=== PATIENT | female | born 1940 | race Caucasian/White ===

== ENCOUNTER 2022-02-23 16:56 | Inpatient (IN) | payer MEDICARE ==
[2022-02-23] MEDS ORDERED: Morphine 4 MG/ML VIAL ONE (17:31)
[2022-02-23 17:40] LABS: #Eosinphils 0.1 thou/uL (0.0-0.7); #Lymphocytes 1.4 thou/uL (1.20-3.40); #Monocytes 0.6 thou/uL (0.11-0.59); #Neutrophils 2.6 thou/uL (1.40-6.50); %Basophils 0.7 % (0.0-1.0); %Eosinophils 1.9 % (0.0-10.0); %Lymphocytes 29.7 % (21.0-51.0); %Monocytes 11.9 % (0.0-10.0); %Neutrophils 55.8 % (42.0-75.0); Mean Corpuscular HGB CONC 32.1 g/dL (32.0-36.0); Mean Corpuscular Hemoglobin 34.2 pg (27.0-31.0); Mean Platelet Volume 8.5 fL (7.4-10.4); Platelet Count 189 thou/uL (130-400); RBC Distribution Width 22.1 % (11.5-14.5); Red Blood Cell (RBC) Count 2.03 mill/uL (4.20-5.40); White Blood Cell (WBC) Count 4.7 thou/uL (4.8-10.8)
[2022-02-23 17:53] LABS: Anisocytosis MODERATE=16-30 cells (100X) (0-5/hpf); MDiff Complete? YES; Macrocytosis SLIGHT = 6-15 cells (100X) (0-5/hpf); Ovalocytes SLIGHT = 2-5 cells (100X) (0-1/hpf); Platelet Morphology Comment Appears Adequate; Polychromasia SLIGHT = 2-3 cells (100X) (0-2/hpf); Tear Drops SLIGHT = 2-5 cells (100X) (0-1/hpf)
[2022-02-23 18:01] LABS: ALT (SGPT) 43 U/L (8-55); AST (SGOT) 51 U/L (5-34); Albumin 3.9 g/dL (3.4-4.8); Alkaline Phosphatase 119 U/L (40-110); Anion Gap 16 mmol/L (10-20); BUN (Urea Nitrogen) 43 mg/dL (9.8-20.1); Bilirubin, Total 1.3 mg/dL (0.2-1.2); Calc. Creatinine Clearance 0 mL/min (70-130); Calcium 9.1 mg/dL (7.8-10.44); Carbon Dioxide 26 mmol/L (23-31); Chloride 99 mmol/L (98-107); Estimated GFR 46; Globulin 2.4 g/dL (2.4-3.5); Glucose 94 mg/dL (83-110); Potassium 4.2 mmol/L (3.5-5.1); Protein, Total 6.3 g/dL (5.8-8.1); Sodium 137 mmol/L (136-145)
[2022-02-23 18:25] LABS: CKMB 3.7 ng/mL (0-6.6)
[2022-02-23] MEDS ORDERED: Furosemide 40 MG/4 ML VIAL ONE (19:10)
[2022-02-23] MEDS ORDERED: Aspirin Chewable 81 MG TAB ONE (19:10)
[2022-02-23] MEDS ORDERED: hydrALAZINE 20 MG/ML VIAL SLOW IVP PRN (20:02)
[2022-02-23] MEDS ORDERED: Dextrose 50% Abboject 50 ML SYRINGE SLOW IVP PRN (20:03)
[2022-02-23] MEDS ORDERED: Dextrose 5% in Water 1,000 ML IV PRN (20:03)
[2022-02-23] MEDS ORDERED: HumaLOG 300 UNITS/3 ML VIAL SC PRN ×2 (20:03)
[2022-02-23] MEDS ORDERED: Ondansetron ODT 4 MG TAB PO PRN (20:04)
[2022-02-23] MEDS ORDERED: Acetaminophen 325 MG TAB PO PRN (20:04)
[2022-02-23] MEDS ORDERED: Ondansetron PF 4 MG/2 ML Vial IVP PRN (20:04)
[2022-02-23] MEDS ORDERED: Electrolyte Replacement Protocol 1 EACH FS SCH (20:15)
[2022-02-23 20:52] VITALS: BMI 19.5
[2022-02-23 21:17] LABS: Troponin I 0.029 ng/mL (< 0.028)
[2022-02-23] MEDS: Morphine 4 MG/ML VIAL SLOW IVP PRN (21:22)
[2022-02-24 00:08] LABS: Troponin I 0.024 ng/mL (< 0.028)
[2022-02-24 04:26] LABS: #Eosinphils 0.2 thou/uL (0.0-0.7); #Lymphocytes 1.6 thou/uL (1.20-3.40); #Monocytes 0.5 thou/uL (0.11-0.59); #Neutrophils 1.6 thou/uL (1.40-6.50); %Basophils 1.3 % (0.0-1.0); %Eosinophils 4.4 % (0.0-10.0); %Lymphocytes 42.3 % (21.0-51.0); %Monocytes 11.6 % (0.0-10.0); %Neutrophils 40.5 % (42.0-75.0); Hemoglobin 6.7 g/dL (12.0-16.0); Mean Corpuscular HGB CONC 31.8 g/dL (32.0-36.0); Mean Corpuscular Hemoglobin 34.1 pg (27.0-31.0); Mean Platelet Volume 8.8 fL (7.4-10.4); Platelet Count 206 thou/uL (130-400); RBC Distribution Width 22.6 % (11.5-14.5); Red Blood Cell (RBC) Count 1.97 mill/uL (4.20-5.40); White Blood Cell (WBC) Count 3.9 thou/uL (4.8-10.8)
[2022-02-24 04:34] LABS: Anion Gap 14 mmol/L (10-20); BUN (Urea Nitrogen) 40 mg/dL (9.8-20.1); Calc. Creatinine Clearance 38 mL/min (70-130); Carbon Dioxide 27 mmol/L (23-31); Chloride 101 mmol/L (98-107); Estimated GFR 49; Glucose 89 mg/dL (83-110); Magnesium 2.2 mg/dL (1.6-2.6); Potassium 3.6 mmol/L (3.5-5.1); Sodium 138 mmol/L (136-145)
[2022-02-24 04:39] LABS: Hemoglobin A1c 5.2 % (4.0-6.0)
[2022-02-24] MEDS: Morphine 4 MG/ML VIAL SLOW IVP PRN ×2 (07:37→14:01)
[2022-02-24] MEDS: Enoxaparin Sodium 40 MG/0.4 ML SYRINGE SC SCH (07:58)
[2022-02-24] MEDS: Potassium Chloride 20 MEQ TAB PO SCH (07:59)
[2022-02-24] MEDS: Ferrous Sulfate 325 MG TAB PO SCH (08:00)
[2022-02-24] MEDS: Multivit, Therapeutic 1 TAB PO SCH (08:00)
[2022-02-24] MEDS: Aspirin Chewable 81 MG TAB PO SCH (08:00)
[2022-02-24] MEDS: Cyanocobalamin (Vitamin B-12) 1,000 MCG TAB PO SCH (08:00)
[2022-02-24] MEDS ORDERED: Furosemide 40 MG/4 ML VIAL SLOW IVP SCH (09:00)
[2022-02-25 04:27] LABS: Reticulocyte Count 2.3 % (0.5-1.5)
[2022-02-25 04:45] LABS: #Eosinphils 0.2 thou/uL (0.0-0.7); #Lymphocytes 1.4 thou/uL (1.20-3.40); #Monocytes 0.6 thou/uL (0.11-0.59); %Basophils 0.6 % (0.0-1.0); %Eosinophils 3.4 % (0.0-10.0); %Lymphocytes 26.1 % (21.0-51.0); %Monocytes 11.3 % (0.0-10.0); %Neutrophils 58.7 % (42.0-75.0); Hemoglobin 8.2 g/dL (12.0-16.0); Mean Corpuscular HGB CONC 32.2 g/dL (32.0-36.0); Mean Platelet Volume 8.7 fL (7.4-10.4); Platelet Count 200 thou/uL (130-400); RBC Distribution Width 22.8 % (11.5-14.5); Red Blood Cell (RBC) Count 2.48 mill/uL (4.20-5.40); White Blood Cell (WBC) Count 5.2 thou/uL (4.8-10.8)
[2022-02-25 04:49] LABS: Iron 91 ug/dL (50-170); Iron Binding Capacity, Total 215 mcg/dL (265-497)
[2022-02-25 04:51] LABS: Anion Gap 14 mmol/L (10-20); BUN (Urea Nitrogen) 35 mg/dL (9.8-20.1); Calc. Creatinine Clearance 34 mL/min (70-130); Calcium 8.7 mg/dL (7.8-10.44); Carbon Dioxide 27 mmol/L (23-31); Chloride 101 mmol/L (98-107); Estimated GFR 43; Glucose 103 mg/dL (83-110); Iron 91 ug/dL (50-170); Iron Binding Capacity, Total 218 mcg/dL (265-497); Potassium 4.1 mmol/L (3.5-5.1); Sodium 138 mmol/L (136-145)
[2022-02-25 05:13] LABS: Ferritin 592.16 ng/mL (10-291); Thyroid Stimulating Hormone 1.9723 uIU/mL (0.35-4.94)
[2022-02-25] MEDS: Aspirin Chewable 81 MG TAB PO SCH (10:28)
[2022-02-25] MEDS: Enoxaparin Sodium 40 MG/0.4 ML SYRINGE SC SCH (10:28)
[2022-02-25] MEDS: Cyanocobalamin (Vitamin B-12) 1,000 MCG TAB PO SCH (10:29)
[2022-02-25] MEDS: Potassium Chloride 20 MEQ TAB PO SCH (10:29)
[2022-02-25] MEDS: Ferrous Sulfate 325 MG TAB PO SCH (10:29)
[2022-02-25] MEDS: Empagliflozin 10 MG TAB PO SCH (10:30)
[2022-02-25] MEDS: Multivit, Therapeutic 1 TAB PO SCH (10:30)
[2022-02-25] MEDS: Spironolactone 25 MG TAB PO SCH (10:30)
[2022-02-25] MEDS: Furosemide 40 MG/4 ML VIAL SLOW IVP SCH (15:32)
[2022-02-25] MEDS: Morphine 4 MG/ML VIAL SLOW IVP PRN (19:35)
[2022-02-26] MEDS: Morphine 4 MG/ML VIAL SLOW IVP PRN (05:18)
[2022-02-26] MEDS: Furosemide 40 MG/4 ML VIAL SLOW IVP SCH ×2 (05:24→16:40)
[2022-02-26] MEDS: Cyanocobalamin (Vitamin B-12) 1,000 MCG TAB PO SCH (09:46)
[2022-02-26] MEDS: Aspirin Chewable 81 MG TAB PO SCH (09:46)
[2022-02-26] MEDS: Ferrous Sulfate 325 MG TAB PO SCH (09:46)
[2022-02-26] MEDS: Empagliflozin 10 MG TAB PO SCH (09:46)
[2022-02-26] MEDS: Multivit, Therapeutic 1 TAB PO SCH (09:46)
[2022-02-26] MEDS: Spironolactone 25 MG TAB PO SCH (09:46)
[2022-02-26] MEDS: Potassium Chloride 20 MEQ TAB PO SCH (09:46)
[2022-02-26] MEDS: Enoxaparin Sodium 40 MG/0.4 ML SYRINGE SC SCH (09:51)
[2022-02-26 16:00] LABS: Anion Gap 16 mmol/L (10-20); BUN (Urea Nitrogen) 30 mg/dL (9.8-20.1); Calc. Creatinine Clearance 34 mL/min (70-130); Calcium 8.8 mg/dL (7.8-10.44); Carbon Dioxide 26 mmol/L (23-31); Chloride 101 mmol/L (98-107); Estimated GFR 43; Glucose 104 mg/dL (83-110); Potassium 4.6 mmol/L (3.5-5.1); Sodium 138 mmol/L (136-145)
[2022-02-26] MEDS: Apixaban 2.5 MG TAB PO SCH (20:19)
[2022-02-27 04:39] LABS: Anion Gap 15 mmol/L (10-20); BUN (Urea Nitrogen) 33 mg/dL (9.8-20.1); Calc. Creatinine Clearance 34 mL/min (70-130); Calcium 8.7 mg/dL (7.8-10.44); Carbon Dioxide 29 mmol/L (23-31); Chloride 99 mmol/L (98-107); Estimated GFR 43; Glucose 150 mg/dL (83-110); Potassium 4.2 mmol/L (3.5-5.1); Sodium 139 mmol/L (136-145)
[2022-02-27] MEDS: Furosemide 40 MG/4 ML VIAL SLOW IVP SCH (06:12)
[2022-02-27 07:47] VITALS: BP 153/68; TEMP 98
[2022-02-27] MEDS: Empagliflozin 10 MG TAB PO SCH (08:44)
[2022-02-27] MEDS: Cyanocobalamin (Vitamin B-12) 1,000 MCG TAB PO SCH (08:44)
[2022-02-27] MEDS: Multivit, Therapeutic 1 TAB PO SCH (08:44)
[2022-02-27] MEDS: Ferrous Sulfate 325 MG TAB PO SCH (08:44)
[2022-02-27] MEDS: Apixaban 2.5 MG TAB PO SCH (08:45)
[2022-02-27] MEDS: Spironolactone 25 MG TAB PO SCH (08:45)
[2022-02-27] MEDS: Aspirin Chewable 81 MG TAB PO SCH (08:47)
[2022-02-27 09:24] LABS: #Eosinphils 0.1 thou/uL (0.0-0.7); #Lymphocytes 0.9 thou/uL (1.20-3.40); #Monocytes 0.4 thou/uL (0.11-0.59); #Neutrophils 1.8 thou/uL (1.40-6.50); %Basophils 0.4 % (0.0-1.0); %Eosinophils 2.5 % (0.0-10.0); %Lymphocytes 28.1 % (21.0-51.0); %Monocytes 12.1 % (0.0-10.0); %Neutrophils 56.9 % (42.0-75.0); Hemoglobin 8.9 g/dL (12.0-16.0); Mean Corpuscular HGB CONC 33.3 g/dL (32.0-36.0); Mean Corpuscular Hemoglobin 34.8 pg (27.0-31.0); Mean Platelet Volume 8.3 fL (7.4-10.4); Platelet Count 187 thou/uL (130-400); RBC Distribution Width 21.6 % (11.5-14.5); Red Blood Cell (RBC) Count 2.56 mill/uL (4.20-5.40); White Blood Cell (WBC) Count 3.1 thou/uL (4.8-10.8)
[2022-02-27 12:37] LABS: Erythropoietin 85.1 mIU/mL (2.6-18.5)
[2022-02-27] MEDS ORDERED: Furosemide 40 MG TAB PO SCH (14:00)
== END 2022-02-27 11:10 | disposition home or self-care (01) | DRG 811 ==
LOC: ERS 16:56 → 2NO 19:00 → OBSVTOIN 02-24 10:36
PROVIDERS: ADMIT Internal Medicine; ATTEND Internal Medicine
PROC: 30233N1 Transfusion of Nonautologous Red Blood Cells into Peripheral Vein, Percutaneous Approach (ICD-10-PCS; principal; 2022-02-24)
DX: D46.9 Myelodysplastic syndrome, unspecified (principal); I50.33 Acute on chronic diastolic (congestive) heart failure; N17.9 Acute kidney failure, unspecified; I48.21 Permanent atrial fibrillation; I11.0 Hypertensive heart disease with heart failure; Z20.822 Contact with and (suspected) exposure to COVID-19; G25.81 Restless legs syndrome; E11.9 Type 2 diabetes mellitus without complications; I08.1 Rheumatic disorders of both mitral and tricuspid valves; Z95.0 Presence of cardiac pacemaker; Z88.7 Allergy status to serum and vaccine; Z79.82 Long term (current) use of aspirin; Z79.84 Long term (current) use of oral hypoglycemic drugs; Z79.899 Other long term (current) drug therapy; Z87.440 Personal history of urinary (tract) infections; Z90.49 Acquired absence of other specified parts of digestive tract; Z90.710 Acquired absence of both cervix and uterus; Z98.890 Other specified postprocedural states; Z90.09 Acquired absence of other part of head and neck; Z87.891 Personal history of nicotine dependence; Z28.311 Partially vaccinated for COVID-19; Z86.73 Personal history of transient ischemic attack (TIA), and cerebral infarction without residual deficits
CPT/HCPCS: 36415; 36416; 36430; 71045; 80048; 80053; 82553; 82607; 82668; 82728; 83010; 83036; 83540; 83550; 83615; 83735; 83880; 84443; 84484; 85025; 85046; 86850; 86900; 86901; 93005; 93306; 93798; 94760; 96374; 96375; J1650; J1940; J2270; P9016; U0003; U0005

== ENCOUNTER 2023-06-12 09:32 | Inpatient (IN) | payer MEDICARE ==
[2023-06-12] MEDS ORDERED: Aspirin Chewable 81 MG TAB ONE (09:42)
[2023-06-12 10:18] LABS: Hematocrit 23.7 % (36.0-47.0); Hemoglobin 7.5 g/dL (12.0-16.0); Manual Diff?? YES; Mean Corpuscular HGB CONC 31.6 g/dL (32.0-36.0); Mean Corpuscular Hemoglobin 33.6 pg (27.0-31.0); Mean Corpuscular Volume 106.3 fl (78.0-98.0); Mean Platelet Volume 11.5 fL (7.4-10.4); Platelet Count 179 10x3/uL (130-400); RBC Distribution Width 25.1 % (11.5-14.5); Red Blood Cell (RBC) Count 2.23 mill/uL (4.20-5.40); White Blood Cell (WBC) Count 3.8 10x3/uL (4.8-10.8)
[2023-06-12 10:24] LABS: Delete Auto Diff?? YES
[2023-06-12 10:48] LABS: ALT (SGPT) 12 U/L (8-55); AST (SGOT) 25 U/L (5-34); Albumin 4.4 g/dL (3.4-4.8); Alkaline Phosphatase 121 U/L (40-110); Anion Gap 14 mmol/L (10-20); BUN (Urea Nitrogen) 27 mg/dL (9.8-20.1); Bilirubin, Total 1.7 mg/dL (0.2-1.2); Calc. Creatinine Clearance 0 mL/min (70-130); Calcium 9.1 mg/dL (7.8-10.44); Carbon Dioxide 26 mmol/L (23-31); Chloride 103 mmol/L (98-107); Estimated GFR 41; Globulin 2.6 g/dL (2.4-3.5); Glucose 119 mg/dL (83-110); Potassium 4.3 mmol/L (3.5-5.1); Sodium 139 mmol/L (136-145)
[2023-06-12 11:06] LABS: Bacteria/HPF None Seen HPF (None Seen); Bilirubin Negative (Negative); Blood, Urine Negative (Negative); CAUTI Indications for Culture Dysuria,urgency,freq; Clarity Clear (Clear); Glucose, Urine (Dipstick) Normal (Negative); Ketone, Urine Negative (Negative); Leukocyte Negative Leu/uL (Negative); Nitrite Negative (Negative); Protein, Urine (Dipstick) Negative (Neg-Trace); RBC/HPF 0-3 HPF (0-3); Specific Gravity, Urine 1.005 (1.002-1.036); Squamous Epithelial None Seen HPF (0-3); Urobilinogen Normal mg/dL (Less than 2); WBC/HPF None Seen HPF (0-3)
[2023-06-12 11:13] LABS: Urine Culture Reflex No No
[2023-06-12 11:20] LABS: Band 7 % (5-11); Eosinophils 4 % (0-10); Lymphocytes 25 % (21-51); Monocytes 17 % (0-10); Neutrophil 47 % (42-75); Nucleated RBC (Manual Ct) 5 % (0)
[2023-06-12 11:21] LABS: Anisocytosis MODERATE=16-30 cells (100X) (0-5/hpf); Hypochromia SLIGHT = 6-15 cells (100X) (0-5/hpf); Platelet Adequacy Comment Platelets Normal; Polychromasia SLIGHT = 2-3 cells (100X) (0-2/hpf); Schistocytes SLIGHT = 2-5 cells (100X) (0-1/hpf); Tear Drops SLIGHT = 2-5 cells (100X) (0-1/hpf)
[2023-06-12] MEDS ORDERED: Polyethylene Glycol 3350 17 GM Packet ONE (13:50)
[2023-06-12] MEDS ORDERED: Glucagon 1 MG/ML KIT IM PRN (14:36)
[2023-06-12] MEDS ORDERED: Dextrose 5% in Water 1,000 ML IV PRN (14:36)
[2023-06-12] MEDS ORDERED: HumaLOG 300 UNITS/3 ML VIAL SC PRN ×2 (14:36→14:48)
[2023-06-12] MEDS ORDERED: Insulin Regular 300 UNITS/3 ML VIAL SC PRN (14:36)
[2023-06-12] MEDS ORDERED: Dextrose 50% Abboject 50 ML SYRINGE SLOW IVP PRN (14:36)
[2023-06-12 15:02] LABS: Troponin I 0.015 ng/mL (< 0.028)
[2023-06-12 16:28] VITALS: BMI 25.2
[2023-06-12] MEDS ORDERED: Furosemide 40 MG/4 ML VIAL SLOW IVP SCH ×2 (16:45→23:45)
[2023-06-12 17:49] LABS: Troponin I 0.015 ng/mL (< 0.028)
[2023-06-12] MEDS: Pregabalin 50 MG CAP PO SCH (20:05)
[2023-06-12] MEDS: Potassium Chloride 20 MEQ TAB PO SCH (20:12)
[2023-06-12] MEDS ORDERED: Melatonin 3 MG TAB PO PRN (23:50)
[2023-06-12] MEDS ORDERED: hydrALAZINE 20 MG/ML VIAL SLOW IVP PRN (23:51)
[2023-06-13 04:18] LABS: #Eosinphils 0.2 thou/uL (0.0-0.7); #Monocytes 0.6 thou/uL (0.11-0.59); #Neutrophils 2.6 thou/uL (1.40-6.50); %Basophils 0.9 % (0.0-1.0); %Eosinophils 3.7 % (0.0-10.0); %Lymphocytes 23.6 % (21.0-51.0); %Monocytes 13.7 % (0.0-10.0); %Neutrophils 57.7 % (42.0-75.0); Hematocrit 23.3 % (36.0-47.0); Hemoglobin 7.3 g/dL (12.0-16.0); Mean Corpuscular HGB CONC 31.3 g/dL (32.0-36.0); Mean Corpuscular Hemoglobin 33.5 pg (27.0-31.0); Mean Corpuscular Volume 106.9 fl (78.0-98.0); Platelet Count 196 10x3/uL (130-400); RBC Distribution Width 24.8 % (11.5-14.5); Red Blood Cell (RBC) Count 2.18 mill/uL (4.20-5.40); White Blood Cell (WBC) Count 4.5 10x3/uL (4.8-10.8)
[2023-06-13 04:37] LABS: Anion Gap 16 mmol/L (10-20); BUN (Urea Nitrogen) 27 mg/dL (9.8-20.1); Calc. Creatinine Clearance 39 mL/min (70-130); Calcium 8.7 mg/dL (7.8-10.44); Carbon Dioxide 28 mmol/L (23-31); Chloride 98 mmol/L (98-107); Estimated GFR 37; Glucose 165 mg/dL (83-110); Potassium 3.6 mmol/L (3.5-5.1); Sodium 138 mmol/L (136-145)
[2023-06-13] MEDS ORDERED: Furosemide 40 MG/4 ML VIAL SLOW IVP SCH ×2 (09:00→16:00)
[2023-06-13] MEDS: Aspirin 81 mg Enteric Coated Tablet PO SCH (09:15)
[2023-06-13] MEDS: Atorvastatin Calcium 40 MG TAB PO SCH (09:15)
[2023-06-13] MEDS: NIFEdipine XL 30 MG ER.TAB PO SCH (09:15)
[2023-06-13] MEDS: Multivit, Therapeutic 1 TAB PO SCH (09:16)
[2023-06-13] MEDS: Cyanocobalamin (Vitamin B-12) 1,000 MCG TAB PO SCH (09:16)
[2023-06-13] MEDS: Pregabalin 50 MG CAP PO SCH ×2 (09:16→20:40)
[2023-06-13] MEDS: Potassium Chloride 20 MEQ TAB PO SCH ×2 (09:16→20:40)
[2023-06-13 09:41] LABS: Hematocrit 24.2 % (36.0-47.0); Hemoglobin 7.6 g/dL (12.0-16.0)
[2023-06-13 20:45] LABS: Hematocrit 26.9 % (36.0-47.0); Hemoglobin 8.7 g/dL (12.0-16.0)
[2023-06-14 05:27] LABS: #Basophils 0.1 thou/uL (0.0-0.2); #Eosinphils 0.2 thou/uL (0.0-0.7); #Monocytes 0.7 thou/uL (0.11-0.59); %Basophils 1.5 % (0.0-1.0); %Eosinophils 4.6 % (0.0-10.0); %Lymphocytes 30.3 % (21.0-51.0); %Monocytes 15.8 % (0.0-10.0); %Neutrophils 47.6 % (42.0-75.0); Hematocrit 26.5 % (36.0-47.0); Hemoglobin 8.5 g/dL (12.0-16.0); Mean Corpuscular HGB CONC 32.1 g/dL (32.0-36.0); Mean Corpuscular Hemoglobin 32.4 pg (27.0-31.0); Mean Corpuscular Volume 101.1 fl (78.0-98.0); Platelet Count 213 10x3/uL (130-400); RBC Distribution Width 25.3 % (11.5-14.5); Red Blood Cell (RBC) Count 2.62 mill/uL (4.20-5.40); White Blood Cell (WBC) Count 4.1 10x3/uL (4.8-10.8)
[2023-06-14 05:56] LABS: Anion Gap 14 mmol/L (10-20); BUN (Urea Nitrogen) 26 mg/dL (9.8-20.1); Calc. Creatinine Clearance 38 mL/min (70-130); Carbon Dioxide 28 mmol/L (23-31); Chloride 99 mmol/L (98-107); Estimated GFR 39; Glucose 101 mg/dL (83-110); Potassium 3.6 mmol/L (3.5-5.1); Sodium 137 mmol/L (136-145)
[2023-06-14 06:19] LABS: Anisocytosis MODERATE=16-30 cells HPF (0-5); CellaVision Operator ID lab.abc; Hypochromia SLIGHT = 6-15 cells HPF (0-5); Large Platelets 24.8 % (0-5); Macrocytosis SLIGHT = 6-15 cells HPF (0-5); Platelet Adequacy Comment Platelets Normal; Polychromasia SLIGHT = 2-3 cells HPF (0-2); Smudge Cells 8.9 %; Tear Drops SLIGHT = 2-5 cells HPF (0-1)
[2023-06-14] MEDS ORDERED: Furosemide 40 MG/4 ML VIAL SLOW IVP SCH ×2 (08:15→16:30)
[2023-06-14] MEDS: NIFEdipine XL 30 MG ER.TAB PO SCH (08:49)
[2023-06-14] MEDS: Multivit, Therapeutic 1 TAB PO SCH (08:51)
[2023-06-14] MEDS: Atorvastatin Calcium 40 MG TAB PO SCH (08:51)
[2023-06-14] MEDS: Pregabalin 50 MG CAP PO SCH ×2 (08:52→21:42)
[2023-06-14] MEDS: Potassium Chloride 20 MEQ TAB PO SCH ×2 (08:52→21:43)
[2023-06-14] MEDS: Aspirin 81 mg Enteric Coated Tablet PO SCH (08:52)
[2023-06-14] MEDS: Cyanocobalamin (Vitamin B-12) 1,000 MCG TAB PO SCH (08:52)
[2023-06-15 05:03] LABS: #Eosinphils 0.2 thou/uL (0.0-0.7); #Monocytes 0.7 thou/uL (0.11-0.59); #Neutrophils 1.7 thou/uL (1.40-6.50); %Basophils 0.8 % (0.0-1.0); %Eosinophils 5.2 % (0.0-10.0); %Lymphocytes 33.9 % (21.0-51.0); %Monocytes 16.8 % (0.0-10.0); Hematocrit 26.3 % (36.0-47.0); Hemoglobin 8.4 g/dL (12.0-16.0); Mean Corpuscular HGB CONC 31.9 g/dL (32.0-36.0); Mean Corpuscular Hemoglobin 32.7 pg (27.0-31.0); Mean Corpuscular Volume 102.3 fl (78.0-98.0); Mean Platelet Volume 11.8 fL (7.4-10.4); Platelet Count 206 10x3/uL (130-400); RBC Distribution Width 24.5 % (11.5-14.5); Red Blood Cell (RBC) Count 2.57 mill/uL (4.20-5.40); White Blood Cell (WBC) Count 3.9 10x3/uL (4.8-10.8)
[2023-06-15 05:25] LABS: Anion Gap 13 mmol/L (10-20); BUN (Urea Nitrogen) 30 mg/dL (9.8-20.1); Calc. Creatinine Clearance 39 mL/min (70-130); Calcium 8.8 mg/dL (7.8-10.44); Carbon Dioxide 27 mmol/L (23-31); Chloride 101 mmol/L (98-107); Estimated GFR 41; Glucose 103 mg/dL (83-110); Potassium 3.9 mmol/L (3.5-5.1); Sodium 137 mmol/L (136-145)
[2023-06-15 06:27] LABS: Anisocytosis MODERATE=16-30 cells HPF (0-5); CellaVision Operator ID LAB.JMM; Elliptocytes SLIGHT = 2-5 cells HPF (0-1); Hypochromia SLIGHT = 6-15 cells HPF (0-5); Macrocytosis SLIGHT = 6-15 cells HPF (0-5); Ovalocytes SLIGHT = 2-5 cells HPF (0-1); Platelet Adequacy Comment Platelets Normal; Polychromasia MODERATE = 3-4 cells HPF (0-2)
[2023-06-15] MEDS: Aspirin 81 mg Enteric Coated Tablet PO SCH (08:58)
[2023-06-15] MEDS: Cyanocobalamin (Vitamin B-12) 1,000 MCG TAB PO SCH (08:59)
[2023-06-15] MEDS: Atorvastatin Calcium 40 MG TAB PO SCH (08:59)
[2023-06-15] MEDS: Multivit, Therapeutic 1 TAB PO SCH (08:59)
[2023-06-15] MEDS ORDERED: Furosemide 40 MG TAB PO SCH (09:00)
[2023-06-15] MEDS: NIFEdipine XL 30 MG ER.TAB PO SCH (09:00)
[2023-06-15] MEDS: Potassium Chloride 20 MEQ TAB PO SCH (09:00)
[2023-06-15] MEDS: Pregabalin 50 MG CAP PO SCH (09:01)
[2023-06-15 16:04] VITALS: BP 149/65; TEMP 98.1
== END 2023-06-15 16:30 | disposition home or self-care (01) | DRG 293 ==
LOC: ERS 09:32 → INTOOBSV 12:34 → ERHOLD 12:34 → 2SW 14:38 → ERHOLD 14:38 → 2SW 16:02 → OBSVTOIN 06-13 09:11
PROVIDERS: ADMIT Family Medicine; ATTEND Family Medicine
PROC: 30233N1 Transfusion of Nonautologous Red Blood Cells into Peripheral Vein, Percutaneous Approach (ICD-10-PCS; principal; 2023-06-13)
DX: I50.33 Acute on chronic diastolic (congestive) heart failure (principal); D46.9 Myelodysplastic syndrome, unspecified; I48.91 Unspecified atrial fibrillation; E03.9 Hypothyroidism, unspecified; N18.32 Chronic kidney disease, stage 3b; E11.22 Type 2 diabetes mellitus with diabetic chronic kidney disease; I45.81 Long QT syndrome; I27.20 Pulmonary hypertension, unspecified; G25.81 Restless legs syndrome; Z66 Do not resuscitate; Z95.0 Presence of cardiac pacemaker; Z88.7 Allergy status to serum and vaccine; Z79.899 Other long term (current) drug therapy; Z79.82 Long term (current) use of aspirin; Z90.49 Acquired absence of other specified parts of digestive tract; Z90.89 Acquired absence of other organs; Z90.710 Acquired absence of both cervix and uterus; Z87.891 Personal history of nicotine dependence
CPT/HCPCS: 36415; 36416; 36430; 71045; 80048; 80053; 81001; 83880; 84484; 85025; 86850; 86900; 86901; 93005; 96374; 96376; 97139; G0378; J1650; J1940; P9016

== ENCOUNTER 2023-09-12 09:40 | Emergency (ER) | payer MEDICARE ==
[2023-09-12] MEDS ORDERED: Acetaminophen 325 MG TAB ONE (12:35)
== END 2023-09-12 14:00 | disposition home or self-care (01) ==
LOC: ERS 09:40
DX: S01.01XA Laceration without foreign body of scalp, initial encounter (principal); I50.9 Heart failure, unspecified; E11.9 Type 2 diabetes mellitus without complications; I48.91 Unspecified atrial fibrillation; Z79.84 Long term (current) use of oral hypoglycemic drugs; W18.30XA Fall on same level, unspecified, initial encounter
CPT/HCPCS: 12001; 70450; 71045; 72125; 72170

== ENCOUNTER 2024-03-23 19:10 | Inpatient (IN) | payer MEDICARE ==
[2024-03-23 20:02] LABS: #Basophils 0.03 10x3/uL (0.0-0.2); %Basophils 0.7 % (0.0-1.0); %Eosinophils 4.1 % (0.0-10.0); %Monocytes 12.1 % (0.0-10.0); %Neutrophils 60.4 % (42.0-75.0); Hematocrit 24.7 % (36.0-47.0); Hemoglobin 7.8 g/dL (12.0-16.0); Mean Corpuscular HGB CONC 31.6 g/dL (32.0-36.0); Mean Corpuscular Hemoglobin 32.8 pg (27.0-31.0); Mean Corpuscular Volume 103.8 fL (78.0-98.0); Mean Platelet Volume 12.2 fL (7.4-10.4); Platelet Count 178 10x3/uL (130-400); RBC Distribution Width 25.2 % (11.5-14.5); Red Blood Cell (RBC) Count 2.38 mill/uL (4.20-5.40)
[2024-03-23 20:15] LABS: ALT (SGPT) 13 U/L (8-55); AST (SGOT) 24 U/L (5-34); Albumin 3.8 g/dL (3.4-4.8); Alkaline Phosphatase 93 U/L (40-110); Anion Gap 13 mmol/L (10-20); BUN (Urea Nitrogen) 20 mg/dL (9.8-20.1); Bilirubin, Total 1.4 mg/dL (0.2-1.2); Calc. Creatinine Clearance 0 mL/min (70-130); Calcium 9.3 mg/dL (7.8-10.44); Carbon Dioxide 23 mmol/L (23-31); Chloride 107 mmol/L (98-107); Estimated GFR 49; Globulin 2.7 g/dL (2.4-3.5); Glucose 104 mg/dL (83-110); Potassium 4.2 mmol/L (3.5-5.1); Protein, Total 6.5 g/dL (5.8-8.1); Sodium 139 mmol/L (136-145)
[2024-03-23 20:19] LABS: Troponin I 0.013 ng/mL (< 0.028)
[2024-03-23 20:24] LABS: Anisocytosis SLIGHT = 6-15 cells HPF (0-5); Hypochromia SLIGHT = 6-15 cells HPF (0-5); Macrocytosis SLIGHT = 6-15 cells HPF (0-5); Platelet Adequacy Comment Platelets Normal; Polychromasia SLIGHT = 2-3 cells HPF (0-2); Schistocytes SLIGHT = 2-5 cells HPF (0-1); Tear Drops SLIGHT = 2-5 cells HPF (0-1)
[2024-03-23] MEDS ORDERED: Acetaminophen 500 MG TAB ONE (20:57)
[2024-03-23] MEDS ORDERED: Furosemide 40 MG (4 mL) VIAL ONE (20:57)
[2024-03-23 21:26] LABS: SARS-CoV-2 E Target Negative; SARS-CoV-2 N2 Target Negative; SARS-CoV-2 NAA Rapid Test Not Detected (NotDetected); SARS-CoV-2 RdRP gene Negative
[2024-03-23] MEDS ORDERED: Ipratropium/Albuterol 3 ML NEB ONE (22:03)
[2024-03-24] MEDS ORDERED: Glucagon 1 MG/ML KIT IM PRN (00:49)
[2024-03-24] MEDS ORDERED: Dextrose 50% Abboject 50 ML SYRINGE SLOW IVP PRN (00:49)
[2024-03-24] MEDS ORDERED: Dextrose 5% in Water 1,000 ML IV PRN (00:49)
[2024-03-24] MEDS ORDERED: Insulin Lispro 100 UNIT/ML 10 ML VIAL SC PRN ×2 (00:52)
[2024-03-24] MEDS ORDERED: Ipratropium/Albuterol 3 ML NEB NEB PRN (00:57)
[2024-03-24 01:32] VITALS: BMI 24.4
[2024-03-24] MEDS: HYDROcodone/Acetaminophen 5/325 mg Tablet PO PRN (02:56)
[2024-03-24 03:00] LABS: #Basophils 0.07 10x3/uL (0.0-0.2); %Basophils 1.1 % (0.0-1.0); %Eosinophils 0.5 % (0.0-10.0); %Lymphocytes 13.3 % (21.0-51.0); %Neutrophils 72.8 % (42.0-75.0); Hematocrit 27.9 % (36.0-47.0); Hemoglobin 8.3 g/dL (12.0-16.0); Mean Corpuscular HGB CONC 29.7 g/dL (32.0-36.0); Mean Corpuscular Hemoglobin 32.3 pg (27.0-31.0); Mean Corpuscular Volume 108.6 fL (78.0-98.0); Mean Platelet Volume 12.3 fL (7.4-10.4); Platelet Count 202 10x3/uL (130-400); RBC Distribution Width 26.1 % (11.5-14.5); Red Blood Cell (RBC) Count 2.57 mill/uL (4.20-5.40)
[2024-03-24 03:14] LABS: ALT (SGPT) 14 U/L (8-55); AST (SGOT) 27 U/L (5-34); Albumin 4.2 g/dL (3.4-4.8); Alkaline Phosphatase 93 U/L (40-110); Anion Gap 16 mmol/L (10-20); BUN (Urea Nitrogen) 19 mg/dL (9.8-20.1); Bilirubin, Total 1.4 mg/dL (0.2-1.2); Calc. Creatinine Clearance 42 mL/min (70-130); Calcium 9.5 mg/dL (7.8-10.44); Carbon Dioxide 21 mmol/L (23-31); Chloride 105 mmol/L (98-107); Estimated GFR 44; Globulin 2.9 g/dL (2.4-3.5); Glucose 161 mg/dL (83-110); Potassium 3.4 mmol/L (3.5-5.1); Protein, Total 7.1 g/dL (5.8-8.1); Sodium 139 mmol/L (136-145)
[2024-03-24 03:15] LABS: Troponin I 0.015 ng/mL (< 0.028)
[2024-03-24] MEDS: Pregabalin 50 MG CAP PO SCH ×2 (03:50→08:10)
[2024-03-24] MEDS: Aspirin 81 mg Enteric Coated Tablet PO SCH (08:09)
[2024-03-24] MEDS: rOPINIRole HCl 0.5 MG TAB PO SCH (08:09)
[2024-03-24] MEDS: metFORMIN 500 MG TAB PO SCH (08:09)
[2024-03-24] MEDS: Potassium Chloride 20 MEQ TAB PO SCH ×2 (08:09→08:25)
[2024-03-24] MEDS: Furosemide 40 MG (4 mL) VIAL SLOW IVP SCH (08:09)
[2024-03-24] MEDS: Ferrous Sulfate 325 MG TAB PO SCH (08:09)
[2024-03-24] MEDS: Cyanocobalamin (Vitamin B-12) 1,000 MCG TAB PO SCH (08:09)
[2024-03-24] MEDS: Enoxaparin 40 MG (0.4 mL) SYRINGE SC SCH (09:40)
[2024-03-24 13:25] LABS: Magnesium 2.2 mg/dL (1.6-2.6)
[2024-03-24] MEDS: Furosemide 20 MG (2 mL) VIAL SLOW IVP SCH (21:32)
[2024-03-25 05:38] LABS: ALT (SGPT) 13 U/L (8-55); AST (SGOT) 24 U/L (5-34); Albumin 3.7 g/dL (3.4-4.8); Alkaline Phosphatase 83 U/L (40-110); Anion Gap 14 mmol/L (10-20); BUN (Urea Nitrogen) 18 mg/dL (9.8-20.1); Bilirubin, Total 1.5 mg/dL (0.2-1.2); Calc. Creatinine Clearance 50 mL/min (70-130); Calcium 9.6 mg/dL (7.8-10.44); Carbon Dioxide 26 mmol/L (23-31); Chloride 103 mmol/L (98-107); Estimated GFR 54; Globulin 2.6 g/dL (2.4-3.5); Glucose 92 mg/dL (83-110); Potassium 4.1 mmol/L (3.5-5.1); Protein, Total 6.3 g/dL (5.8-8.1); Sodium 139 mmol/L (136-145)
[2024-03-25 05:42] LABS: #Basophils Less than 0.03 10x3/uL (0.0-0.2); %Basophils 0.5 % (0.0-1.0); %Eosinophils 1.9 % (0.0-10.0); %Lymphocytes 22.3 % (21.0-51.0); %Monocytes 11.1 % (0.0-10.0); %Neutrophils 63.7 % (42.0-75.0); Hematocrit 24.6 % (36.0-47.0); Hemoglobin 7.7 g/dL (12.0-16.0); Mean Corpuscular HGB CONC 31.3 g/dL (32.0-36.0); Mean Corpuscular Hemoglobin 32.4 pg (27.0-31.0); Mean Corpuscular Volume 103.4 fL (78.0-98.0); Mean Platelet Volume 10.5 fL (7.4-10.4); Platelet Count 147 10x3/uL (130-400); Red Blood Cell (RBC) Count 2.38 mill/uL (4.20-5.40)
[2024-03-25] MEDS ORDERED: Furosemide 40 MG (4 mL) VIAL SLOW IVP SCH ×2 (08:32→21:00)
[2024-03-25] MEDS: Enoxaparin 40 MG (0.4 mL) SYRINGE SC SCH (08:36)
[2024-03-25] MEDS: Furosemide 20 MG (2 mL) VIAL SLOW IVP SCH ×2 (08:42→20:36)
[2024-03-25] MEDS: Furosemide 40 MG (4 mL) VIAL SLOW IVP SCH (09:41)
[2024-03-25] MEDS: Ondansetron PF 4 MG/2 ML Vial IVP PRN (22:38)
[2024-03-26 05:27] LABS: #Basophils 0.03 10x3/uL (0.0-0.2); %Basophils 0.9 % (0.0-1.0); %Eosinophils 3.1 % (0.0-10.0); %Lymphocytes 28.4 % (21.0-51.0); %Monocytes 15.6 % (0.0-10.0); %Neutrophils 51.7 % (42.0-75.0); Hematocrit 26.1 % (36.0-47.0); Hemoglobin 8.3 g/dL (12.0-16.0); Mean Corpuscular HGB CONC 31.8 g/dL (32.0-36.0); Mean Corpuscular Hemoglobin 32.2 pg (27.0-31.0); Mean Corpuscular Volume 101.2 fL (78.0-98.0); Mean Platelet Volume 11.2 fL (7.4-10.4); Platelet Count 167 10x3/uL (130-400); RBC Distribution Width 24.5 % (11.5-14.5); Red Blood Cell (RBC) Count 2.58 mill/uL (4.20-5.40)
[2024-03-26] MEDS: Furosemide 20 MG TAB PO SCH (08:36)
[2024-03-26] MEDS: HYDROcodone/Acetaminophen 5/325 mg Tablet PO PRN (21:38)
[2024-03-27 05:25] LABS: #Basophils Less than 0.03 10x3/uL (0.0-0.2); %Basophils 0.7 % (0.0-1.0); %Eosinophils 3.9 % (0.0-10.0); %Lymphocytes 30.9 % (21.0-51.0); %Monocytes 15.6 % (0.0-10.0); %Neutrophils 48.5 % (42.0-75.0); Hematocrit 25.5 % (36.0-47.0); Hemoglobin 8.4 g/dL (12.0-16.0); Mean Corpuscular HGB CONC 32.9 g/dL (32.0-36.0); Mean Corpuscular Hemoglobin 33.1 pg (27.0-31.0); Mean Corpuscular Volume 100.4 fL (78.0-98.0); Mean Platelet Volume 11.1 fL (7.4-10.4); Platelet Count 171 10x3/uL (130-400); RBC Distribution Width 23.9 % (11.5-14.5); Red Blood Cell (RBC) Count 2.54 mill/uL (4.20-5.40)
[2024-03-27 05:43] LABS: ALT (SGPT) 10 U/L (8-55); AST (SGOT) 24 U/L (5-34); Albumin 3.4 g/dL (3.4-4.8); Alkaline Phosphatase 73 U/L (40-110); Anion Gap 16 mmol/L (10-20); BUN (Urea Nitrogen) 18 mg/dL (9.8-20.1); Bilirubin, Total 1.5 mg/dL (0.2-1.2); Calc. Creatinine Clearance 45 mL/min (70-130); Calcium 8.9 mg/dL (7.8-10.44); Carbon Dioxide 23 mmol/L (23-31); Chloride 102 mmol/L (98-107); Estimated GFR 52; Globulin 2.7 g/dL (2.4-3.5); Glucose 82 mg/dL (83-110); Potassium 3.9 mmol/L (3.5-5.1); Protein, Total 6.1 g/dL (5.8-8.1); Sodium 137 mmol/L (136-145)
[2024-03-27] MEDS: Acetaminophen 325 MG TAB PO PRN (09:30)
[2024-03-27] MEDS: Furosemide 20 MG TAB PO SCH (11:01)
[2024-03-27] MEDS: Furosemide 20 MG (2 mL) VIAL SLOW IVP SCH (17:25)
[2024-03-28 11:00] LABS: #Basophils 0.03 10x3/uL (0.0-0.2); %Basophils 1.1 % (0.0-1.0); %Eosinophils 4.3 % (0.0-10.0); %Lymphocytes 28.7 % (21.0-51.0); %Monocytes 18.6 % (0.0-10.0); %Neutrophils 46.9 % (42.0-75.0); Hematocrit 29.9 % (36.0-47.0); Hemoglobin 9.9 g/dL (12.0-16.0); Mean Corpuscular HGB CONC 33.1 g/dL (32.0-36.0); Mean Corpuscular Hemoglobin 32.8 pg (27.0-31.0); Mean Platelet Volume 12.1 fL (7.4-10.4); Platelet Count 232 10x3/uL (130-400); RBC Distribution Width 23.9 % (11.5-14.5); Red Blood Cell (RBC) Count 3.02 mill/uL (4.20-5.40)
[2024-03-28 12:00] LABS: ALT (SGPT) 12 U/L (8-55); AST (SGOT) 26 U/L (5-34); Albumin 3.8 g/dL (3.4-4.8); Alkaline Phosphatase 81 U/L (40-110); Anion Gap 14 mmol/L (10-20); BUN (Urea Nitrogen) 18 mg/dL (9.8-20.1); Bilirubin, Total 1.7 mg/dL (0.2-1.2); Calc. Creatinine Clearance 45 mL/min (70-130); Calcium 9.4 mg/dL (7.8-10.44); Carbon Dioxide 32 mmol/L (23-31); Chloride 93 mmol/L (98-107); Estimated GFR 52; Glucose 102 mg/dL (83-110); Potassium 3.5 mmol/L (3.5-5.1); Protein, Total 6.8 g/dL (5.8-8.1); Sodium 135 mmol/L (136-145)
[2024-03-29 05:56] LABS: Hematocrit 26.8 % (36.0-47.0); Hemoglobin 8.8 g/dL (12.0-16.0); Mean Corpuscular HGB CONC 32.8 g/dL (32.0-36.0); Mean Corpuscular Hemoglobin 31.5 pg (27.0-31.0); Mean Corpuscular Volume 96.1 fL (78.0-98.0); Platelet Count 199 10x3/uL (130-400); RBC Distribution Width 23.6 % (11.5-14.5); Red Blood Cell (RBC) Count 2.79 mill/uL (4.20-5.40)
[2024-03-29 06:05] LABS: ALT (SGPT) 13 U/L (8-55); AST (SGOT) 27 U/L (5-34); Albumin 3.5 g/dL (3.4-4.8); Alkaline Phosphatase 75 U/L (40-110); Anion Gap 12 mmol/L (10-20); BUN (Urea Nitrogen) 21 mg/dL (9.8-20.1); Bilirubin, Total 1.5 mg/dL (0.2-1.2); Calc. Creatinine Clearance 47 mL/min (70-130); Calcium 9.5 mg/dL (7.8-10.44); Carbon Dioxide 29 mmol/L (23-31); Chloride 95 mmol/L (98-107); Estimated GFR 55; Globulin 2.6 g/dL (2.4-3.5); Glucose 90 mg/dL (83-110); Potassium 3.5 mmol/L (3.5-5.1); Protein, Total 6.1 g/dL (5.8-8.1); Sodium 132 mmol/L (136-145)
[2024-03-29 06:09] LABS: Anisocytosis MODERATE=16-30 cells HPF (0-5); Elliptocytes SLIGHT = 2-5 cells HPF (0-1); Eosinophils 11 % (0-10); Hypochromia MODERATE=16-30 cells HPF (0-5); Lymphocytes 39 % (21-51); Metamyelocyte 3 % (0-0); Monocytes 8 % (0-10); Myelocyte 1 % (0-0); Neutrophil 34 % (42-75); Nucleated RBC (Manual Ct) 2 % (0); Platelet Adequacy Comment Platelets Normal; Poikilocytosis SLIGHT = 6-15 cells HPF (0-5); Polychromasia SLIGHT = 2-3 cells HPF (0-2); Reactive Lymphocytes 2 % (0-10); Schistocytes SLIGHT = 2-5 cells HPF (0-1); Tear Drops MODERATE= 6-15 cells HPF (0-1)
[2024-03-29 13:52] VITALS: BP 144/72; TEMP 98.2
== END 2024-03-29 14:36 | DRG 292 ==
LOC: ERS 19:10 → ERHOLD 23:33 → 2SE 23:36 → OBSVTOIN 03-24 14:30
PROVIDERS: ADMIT Emergency Medicine; ATTEND Emergency Medicine
DX: I50.33 Acute on chronic diastolic (congestive) heart failure (principal); D61.818 Other pancytopenia; J44.1 Chronic obstructive pulmonary disease with (acute) exacerbation; E87.1 Hypo-osmolality and hyponatremia; Z66 Do not resuscitate; E11.9 Type 2 diabetes mellitus without complications; M54.9 Dorsalgia, unspecified; G89.29 Other chronic pain; I07.1 Rheumatic tricuspid insufficiency; D46.9 Myelodysplastic syndrome, unspecified; R06.03 Acute respiratory distress; F17.210 Nicotine dependence, cigarettes, uncomplicated; I48.91 Unspecified atrial fibrillation; Z95.0 Presence of cardiac pacemaker; Z79.899 Other long term (current) drug therapy; Z79.82 Long term (current) use of aspirin; Z90.49 Acquired absence of other specified parts of digestive tract; Z90.89 Acquired absence of other organs; Z98.890 Other specified postprocedural states
CPT/HCPCS: 36415; 36416; 71045; 80053; 83735; 83880; 84484; 85025; 93005; 93306; 94644; 96372; 96374; 96376; G0378; J1650; J1940; J2405; J7620; U0002

== ENCOUNTER 2024-04-13 15:59 | Inpatient (IN) | payer MEDICARE ==
[2024-04-13] MEDS ORDERED: Morphine 2 MG/ML VIAL ONE (17:32)
[2024-04-13] MEDS ORDERED: Ondansetron PF 4 MG/2 ML Vial ONE (17:32)
[2024-04-13 17:45] LABS: #Basophils 0.06 10x3/uL (0.0-0.2); %Basophils 1.4 % (0.0-1.0); %Eosinophils 4.9 % (0.0-10.0); %Lymphocytes 33.7 % (21.0-51.0); %Monocytes 15.8 % (0.0-10.0); Hematocrit 22.1 % (36.0-47.0); Hemoglobin 7.4 g/dL (12.0-16.0); Mean Corpuscular HGB CONC 33.5 g/dL (32.0-36.0); Mean Corpuscular Hemoglobin 32.9 pg (27.0-31.0); Mean Corpuscular Volume 98.2 fL (78.0-98.0); Platelet Count 179 10x3/uL (130-400); RBC Distribution Width 23.7 % (11.5-14.5); Red Blood Cell (RBC) Count 2.25 mill/uL (4.20-5.40)
[2024-04-13 17:56] LABS: ALT (SGPT) 13 U/L (8-55); AST (SGOT) 24 U/L (5-34); Albumin 3.9 g/dL (3.4-4.8); Alkaline Phosphatase 105 U/L (40-110); Anion Gap 12 mmol/L (10-20); BUN (Urea Nitrogen) 39 mg/dL (9.8-20.1); Calc. Creatinine Clearance 0 mL/min (70-130); Calcium 9.3 mg/dL (7.8-10.44); Carbon Dioxide 26 mmol/L (23-31); Chloride 96 mmol/L (98-107); Estimated GFR 31; Globulin 2.4 g/dL (2.4-3.5); Glucose 102 mg/dL (83-110); Protein, Total 6.3 g/dL (5.8-8.1); Sodium 129 mmol/L (136-145)
[2024-04-13 17:59] LABS: Troponin I 0.025 ng/mL (< 0.028)
[2024-04-13 19:39] LABS: Bilirubin Negative (Negative); Blood, Urine Negative (Negative); CAUTI Indications for Culture Alt mental st,lethar; Clarity Clear (Clear); Glucose, Urine (Dipstick) Normal (Negative); Ketone, Urine Negative (Negative); Leukocyte 75 Leu/uL (Negative); Nitrite 2+ (Negative); Protein, Urine (Dipstick) Negative (Neg-Trace); RBC/HPF 0-3 HPF (0-3); Specific Gravity, Urine 1.007 (1.002-1.036); Squamous Epithelial 0-3 HPF (0-3); Urobilinogen Normal mg/dL (Less than 2); pH, Urine 5.5 (5.0-9.0)
[2024-04-13 19:52] LABS: Bacteria/HPF 1+ HPF (None Seen)
[2024-04-13 19:53] LABS: Urine Culture Reflex No No
[2024-04-13] MEDS ORDERED: Dextrose 5% in Water 1,000 ML IV PRN (21:51)
[2024-04-13] MEDS ORDERED: Acetaminophen 325 MG TAB PO PRN (21:51)
[2024-04-13] MEDS ORDERED: Dextrose 50% Abboject 50 ML SYRINGE SLOW IVP PRN (21:51)
[2024-04-13] MEDS ORDERED: Ondansetron ODT 4 MG TAB PO PRN (21:51)
[2024-04-13] MEDS ORDERED: Glucagon 1 MG/ML KIT IM PRN (21:51)
[2024-04-13] MEDS ORDERED: Insulin Lispro 100 UNIT/ML 10 ML VIAL SC PRN ×2 (21:56)
[2024-04-13] MEDS: cefTRIAXone\\ROCEPHIN 1 GM in Sodium Chloride 0.9% 100 ML IVPB SCH (22:32)
[2024-04-13] MEDS ORDERED: cefTRIAXone (ROCEPHIN) 1 GM VIAL ONE (22:32)
[2024-04-13] MEDS ORDERED: Sodium Chloride 0.9% 100 ML ONE (22:32)
[2024-04-13] MEDS ORDERED: HYDROcodone/Acetaminophen 5/325 mg Tablet ONE (22:39)
[2024-04-13] MEDS: HYDROcodone/Acetaminophen 5/325 mg Tablet PO PRN (22:45)
[2024-04-13 23:20] LABS: Creatinine, Urine 68.42 mg/dL (47-110); Sodium, Urine Less than 20 mmol/L (Not Available); Urea Nitrogen, Random Urine 511 mg/dl
[2024-04-13 23:35] LABS: Troponin I 0.024 ng/mL (< 0.028)
[2024-04-14 00:19] LABS: Hemoglobin A1c 5.4 % (4.0-6.0)
[2024-04-14 00:23] LABS: CK (CPK) 56 U/L (29-168); Magnesium 2.3 mg/dL (1.6-2.6); Phosphorus 4.2 mg/dL (2.3-4.7)
[2024-04-14 00:25] LABS: Troponin I 0.024 ng/mL (< 0.028)
[2024-04-14 03:37] VITALS: BMI 23.9
[2024-04-14 08:36] LABS: #Basophils 0.04 10x3/uL (0.0-0.2); %Basophils 1.1 % (0.0-1.0); %Eosinophils 6.7 % (0.0-10.0); %Lymphocytes 38.3 % (21.0-51.0); %Monocytes 13.7 % (0.0-10.0); %Neutrophils 39.9 % (42.0-75.0); Hematocrit 27.6 % (36.0-47.0); Hemoglobin 8.9 g/dL (12.0-16.0); Mean Corpuscular HGB CONC 32.2 g/dL (32.0-36.0); Mean Corpuscular Hemoglobin 31.7 pg (27.0-31.0); Mean Corpuscular Volume 98.2 fL (78.0-98.0); Platelet Count 176 10x3/uL (130-400); RBC Distribution Width 24.6 % (11.5-14.5); Red Blood Cell (RBC) Count 2.81 mill/uL (4.20-5.40)
[2024-04-14] MEDS: Pregabalin 50 MG CAP PO SCH (08:59)
[2024-04-14] MEDS: Potassium Chloride 20 MEQ TAB PO SCH (08:59)
[2024-04-14] MEDS: metFORMIN 500 MG TAB PO SCH (08:59)
[2024-04-14] MEDS: Enoxaparin 30 MG (0.3 mL) SYRINGE SC SCH (08:59)
[2024-04-14] MEDS: Ferrous Sulfate 325 MG TAB PO SCH (08:59)
[2024-04-14] MEDS: Aspirin 81 mg Enteric Coated Tablet PO SCH (08:59)
[2024-04-14] MEDS: Cyanocobalamin (Vitamin B-12) 1,000 MCG TAB PO SCH (09:01)
[2024-04-14] MEDS: Furosemide 20 MG TAB PO SCH (09:01)
[2024-04-14 09:08] LABS: ALT (SGPT) 14 U/L (8-55); AST (SGOT) 24 U/L (5-34); Albumin 3.9 g/dL (3.4-4.8); Alkaline Phosphatase 89 U/L (40-110); Anion Gap 10 mmol/L (10-20); BUN (Urea Nitrogen) 32 mg/dL (9.8-20.1); Bilirubin, Total 1.9 mg/dL (0.2-1.2); Calc. Creatinine Clearance 37 mL/min (70-130); Calcium 9.3 mg/dL (7.8-10.44); Carbon Dioxide 30 mmol/L (23-31); Chloride 97 mmol/L (98-107); Estimated GFR 38; Globulin 2.5 g/dL (2.4-3.5); Glucose 112 mg/dL (83-110); Potassium 4.6 mmol/L (3.5-5.1); Protein, Total 6.4 g/dL (5.8-8.1); Sodium 132 mmol/L (136-145)
[2024-04-14] MEDS: Acetaminophen 325 MG TAB PO SCH (13:14)
[2024-04-14] MEDS: Lactated Ringer's 1,000 ML IV SCH (13:17)
[2024-04-14 16:32] LABS: Amphetamine Not Detected (NotDetected); Barbiturates Screen Not Detected (NotDetected); Benzodiazepine Screen Not Detected (NotDetected); Cocaine Metabolite Screen Not Detected (NotDetected); Methadone Not Detected (NotDetected); Methamphetamine Not Detected (NotDetected); Opiate Screen Detected (NotDetected); Oxycodone Screen Not Detected (NotDetected); Phencyclidine (PCP) Not Detected (NotDetected); THC/Cannabinoid Screen Not Detected (NotDetected); Tricyclic Screen Not Detected (NotDetected)
[2024-04-15 05:27] LABS: #Basophils 0.04 10x3/uL (0.0-0.2); %Basophils 1.5 % (0.0-1.0); %Lymphocytes 40.9 % (21.0-51.0); %Monocytes 16.7 % (0.0-10.0); %Neutrophils 32.9 % (42.0-75.0); Hematocrit 24.2 % (36.0-47.0); Hemoglobin 7.8 g/dL (12.0-16.0); Mean Corpuscular HGB CONC 32.2 g/dL (32.0-36.0); Mean Corpuscular Volume 99.2 fL (78.0-98.0); Mean Platelet Volume 11.2 fL (7.4-10.4); Platelet Count 162 10x3/uL (130-400); RBC Distribution Width 24.6 % (11.5-14.5); Red Blood Cell (RBC) Count 2.44 mill/uL (4.20-5.40)
[2024-04-15 06:15] LABS: ALT (SGPT) 12 U/L (8-55); AST (SGOT) 18 U/L (5-34); Albumin 3.4 g/dL (3.4-4.8); Alkaline Phosphatase 70 U/L (40-110); Anion Gap 10 mmol/L (10-20); Anisocytosis MODERATE=16-30 cells HPF (0-5); BUN (Urea Nitrogen) 29 mg/dL (9.8-20.1); Bilirubin, Total 0.8 mg/dL (0.2-1.2); Calc. Creatinine Clearance 37 mL/min (70-130); Calcium 8.9 mg/dL (7.8-10.44); Carbon Dioxide 28 mmol/L (23-31); Chloride 100 mmol/L (98-107); Elliptocytes SLIGHT = 2-5 cells HPF (0-1); Estimated GFR 38; Globulin 2.1 g/dL (2.4-3.5); Glucose 100 mg/dL (83-110); Hypochromia SLIGHT = 6-15 cells HPF (0-5); Platelet Adequacy Comment Platelets Normal; Poikilocytosis SLIGHT = 6-15 cells HPF (0-5); Polychromasia SLIGHT = 2-3 cells HPF (0-2); Potassium 4.6 mmol/L (3.5-5.1); Protein, Total 5.5 g/dL (5.8-8.1); Sodium 133 mmol/L (136-145); Tear Drops SLIGHT = 2-5 cells HPF (0-1)
[2024-04-15] MEDS: Lactated Ringer's 1,000 ML IV SCH (08:41)
[2024-04-15 14:28] VITALS: BMI 23.9
[2024-04-15] MEDS: Enoxaparin 40 MG (0.4 mL) SYRINGE SC SCH (21:06)
[2024-04-16 04:43] LABS: #Basophils 0.03 10x3/uL (0.0-0.2); %Basophils 0.9 % (0.0-1.0); %Eosinophils 4.6 % (0.0-10.0); %Lymphocytes 33.7 % (21.0-51.0); %Monocytes 16.7 % (0.0-10.0); %Neutrophils 43.8 % (42.0-75.0); Hematocrit 23.9 % (36.0-47.0); Hemoglobin 7.6 g/dL (12.0-16.0); Mean Corpuscular HGB CONC 31.8 g/dL (32.0-36.0); Mean Corpuscular Hemoglobin 31.8 pg (27.0-31.0); Mean Platelet Volume 10.4 fL (7.4-10.4); Platelet Count 147 10x3/uL (130-400); Red Blood Cell (RBC) Count 2.39 mill/uL (4.20-5.40)
[2024-04-16 04:48] LABS: ALT (SGPT) 12 U/L (8-55); AST (SGOT) 21 U/L (5-34); Albumin 3.5 g/dL (3.4-4.8); Alkaline Phosphatase 78 U/L (40-110); Anion Gap 10 mmol/L (10-20); BUN (Urea Nitrogen) 26 mg/dL (9.8-20.1); Bilirubin, Total 0.9 mg/dL (0.2-1.2); Calc. Creatinine Clearance 42 mL/min (70-130); Carbon Dioxide 29 mmol/L (23-31); Chloride 101 mmol/L (98-107); Estimated GFR 44; Globulin 2.2 g/dL (2.4-3.5); Glucose 87 mg/dL (83-110); Potassium 4.1 mmol/L (3.5-5.1); Protein, Total 5.7 g/dL (5.8-8.1); Sodium 136 mmol/L (136-145)
[2024-04-16] MEDS: Furosemide 40 MG (4 mL) VIAL SLOW IVP SCH (09:29)
[2024-04-17 05:47] LABS: #Basophils 0.04 10x3/uL (0.0-0.2); %Basophils 1.4 % (0.0-1.0); %Eosinophils 6.3 % (0.0-10.0); %Lymphocytes 41.5 % (21.0-51.0); %Monocytes 13.7 % (0.0-10.0); %Neutrophils 37.1 % (42.0-75.0); Hematocrit 24.8 % (36.0-47.0); Hemoglobin 7.8 g/dL (12.0-16.0); Mean Corpuscular HGB CONC 31.5 g/dL (32.0-36.0); Mean Corpuscular Hemoglobin 31.7 pg (27.0-31.0); Mean Corpuscular Volume 100.8 fL (78.0-98.0); Mean Platelet Volume 11.2 fL (7.4-10.4); Platelet Count 164 10x3/uL (130-400); RBC Distribution Width 24.1 % (11.5-14.5); Red Blood Cell (RBC) Count 2.46 mill/uL (4.20-5.40)
[2024-04-17 06:27] LABS: Elliptocytes SLIGHT = 2-5 cells HPF (0-1); Platelet Adequacy Comment Platelets Normal; Polychromasia SLIGHT = 2-3 cells HPF (0-2); Tear Drops SLIGHT = 2-5 cells HPF (0-1)
[2024-04-17 07:02] LABS: ALT (SGPT) 13 U/L (8-55); AST (SGOT) 23 U/L (5-34); Albumin 3.8 g/dL (3.4-4.8); Alkaline Phosphatase 80 U/L (40-110); Anion Gap 11 mmol/L (10-20); BUN (Urea Nitrogen) 22 mg/dL (9.8-20.1); Calc. Creatinine Clearance 43 mL/min (70-130); Calcium 9.4 mg/dL (7.8-10.44); Carbon Dioxide 28 mmol/L (23-31); Chloride 100 mmol/L (98-107); Estimated GFR 45; Globulin 2.4 g/dL (2.4-3.5); Glucose 83 mg/dL (83-110); Potassium 3.9 mmol/L (3.5-5.1); Protein, Total 6.2 g/dL (5.8-8.1); Sodium 135 mmol/L (136-145)
[2024-04-17] MEDS: Furosemide 20 MG (2 mL) VIAL SLOW IVP SCH (09:13)
[2024-04-18 05:08] LABS: #Basophils 0.04 10x3/uL (0.0-0.2); %Basophils 1.3 % (0.0-1.0); %Eosinophils 7.6 % (0.0-10.0); %Lymphocytes 37.5 % (21.0-51.0); %Monocytes 12.5 % (0.0-10.0); %Neutrophils 40.8 % (42.0-75.0); Hematocrit 23.7 % (36.0-47.0); Hemoglobin 7.6 g/dL (12.0-16.0); Mean Corpuscular HGB CONC 32.1 g/dL (32.0-36.0); Mean Corpuscular Hemoglobin 31.9 pg (27.0-31.0); Mean Corpuscular Volume 99.6 fL (78.0-98.0); Mean Platelet Volume 11.4 fL (7.4-10.4); Platelet Count 161 10x3/uL (130-400); RBC Distribution Width 23.6 % (11.5-14.5); Red Blood Cell (RBC) Count 2.38 mill/uL (4.20-5.40)
[2024-04-18 05:30] LABS: ALT (SGPT) 12 U/L (8-55); AST (SGOT) 22 U/L (5-34); Albumin 3.7 g/dL (3.4-4.8); Alkaline Phosphatase 74 U/L (40-110); Anion Gap 15 mmol/L (10-20); BUN (Urea Nitrogen) 21 mg/dL (9.8-20.1); Bilirubin, Total 0.8 mg/dL (0.2-1.2); Calc. Creatinine Clearance 40 mL/min (70-130); Calcium 9.4 mg/dL (7.8-10.44); Carbon Dioxide 29 mmol/L (23-31); Chloride 99 mmol/L (98-107); Estimated GFR 42; Globulin 2.4 g/dL (2.4-3.5); Glucose 85 mg/dL (83-110); Potassium 3.6 mmol/L (3.5-5.1); Protein, Total 6.1 g/dL (5.8-8.1); Sodium 139 mmol/L (136-145)
[2024-04-18] MEDS: Lorazepam 0.5 MG TAB PO SCH (18:13)
[2024-04-19 04:45] LABS: #Basophils 0.04 10x3/uL (0.0-0.2); %Basophils 1.3 % (0.0-1.0); %Eosinophils 5.5 % (0.0-10.0); %Lymphocytes 38.3 % (21.0-51.0); %Monocytes 12.2 % (0.0-10.0); %Neutrophils 42.1 % (42.0-75.0); Hematocrit 23.2 % (36.0-47.0); Hemoglobin 7.6 g/dL (12.0-16.0); Mean Corpuscular HGB CONC 32.8 g/dL (32.0-36.0); Mean Corpuscular Hemoglobin 32.3 pg (27.0-31.0); Mean Corpuscular Volume 98.7 fL (78.0-98.0); Mean Platelet Volume 11.3 fL (7.4-10.4); Platelet Count 169 10x3/uL (130-400); RBC Distribution Width 23.7 % (11.5-14.5); Red Blood Cell (RBC) Count 2.35 mill/uL (4.20-5.40)
[2024-04-19 05:39] LABS: ALT (SGPT) 13 U/L (8-55); AST (SGOT) 24 U/L (5-34); Albumin 3.8 g/dL (3.4-4.8); Alkaline Phosphatase 77 U/L (40-110); Anion Gap 15 mmol/L (10-20); BUN (Urea Nitrogen) 20 mg/dL (9.8-20.1); Bilirubin, Total 0.9 mg/dL (0.2-1.2); Calc. Creatinine Clearance 40 mL/min (70-130); Calcium 9.6 mg/dL (7.8-10.44); Carbon Dioxide 29 mmol/L (23-31); Chloride 101 mmol/L (98-107); Estimated GFR 42; Globulin 2.3 g/dL (2.4-3.5); Glucose 74 mg/dL (83-110); Potassium 3.6 mmol/L (3.5-5.1); Protein, Total 6.1 g/dL (5.8-8.1); Sodium 141 mmol/L (136-145)
[2024-04-19] MEDS: Lorazepam 0.5 MG TAB PO SCH (21:07)
[2024-04-20 04:42] LABS: #Basophils 0.05 10x3/uL (0.0-0.2); %Basophils 1.3 % (0.0-1.0); %Eosinophils 5.4 % (0.0-10.0); %Lymphocytes 37.7 % (21.0-51.0); %Monocytes 12.7 % (0.0-10.0); %Neutrophils 42.6 % (42.0-75.0); Hematocrit 26.4 % (36.0-47.0); Hemoglobin 8.2 g/dL (12.0-16.0); Mean Corpuscular HGB CONC 31.1 g/dL (32.0-36.0); Mean Corpuscular Hemoglobin 31.4 pg (27.0-31.0); Mean Corpuscular Volume 101.1 fL (78.0-98.0); Mean Platelet Volume 10.8 fL (7.4-10.4); Platelet Count 181 10x3/uL (130-400); RBC Distribution Width 23.8 % (11.5-14.5); Red Blood Cell (RBC) Count 2.61 mill/uL (4.20-5.40)
[2024-04-20 04:53] LABS: ALT (SGPT) 24 U/L (8-55); AST (SGOT) 38 U/L (5-34); Albumin 4.1 g/dL (3.4-4.8); Alkaline Phosphatase 80 U/L (40-110); Anion Gap 12 mmol/L (10-20); BUN (Urea Nitrogen) 18 mg/dL (9.8-20.1); Bilirubin, Total 1.1 mg/dL (0.2-1.2); Calc. Creatinine Clearance 45 mL/min (70-130); Calcium 9.9 mg/dL (7.8-10.44); Carbon Dioxide 29 mmol/L (23-31); Chloride 102 mmol/L (98-107); Estimated GFR 48; Globulin 2.6 g/dL (2.4-3.5); Glucose 88 mg/dL (83-110); Potassium 3.6 mmol/L (3.5-5.1); Protein, Total 6.7 g/dL (5.8-8.1); Sodium 139 mmol/L (136-145)
[2024-04-20] MEDS: Enoxaparin 40 MG (0.4 mL) SYRINGE SC SCH (09:27)
[2024-04-20 15:52] VITALS: TEMP 98.5
[2024-04-20 16:01] VITALS: BP 157/74
== END 2024-04-20 17:16 | DRG 312 ==
LOC: ERS 15:59 → ERHOLD 20:48 → 2NO 04-14 03:25 → OBSVTOIN 04-16 09:58
PROVIDERS: ADMIT Family Medicine; ATTEND Family Medicine
PROC: 30233N1 Transfusion of Nonautologous Red Blood Cells into Peripheral Vein, Percutaneous Approach (ICD-10-PCS; 2024-04-14)
PROC: 4A00X4Z Measurement of Central Nervous Electrical Activity, External Approach (ICD-10-PCS; principal; 2024-04-15)
DX: R55 Syncope and collapse (principal); N17.9 Acute kidney failure, unspecified; E87.1 Hypo-osmolality and hyponatremia; N39.0 Urinary tract infection, site not specified; S12.100A Unspecified displaced fracture of second cervical vertebra, initial encounter for closed fracture; I48.21 Permanent atrial fibrillation; I50.32 Chronic diastolic (congestive) heart failure; G25.81 Restless legs syndrome; M54.9 Dorsalgia, unspecified; G89.29 Other chronic pain; Z66 Do not resuscitate; D46.4 Refractory anemia, unspecified; D46.9 Myelodysplastic syndrome, unspecified; J44.9 Chronic obstructive pulmonary disease, unspecified; E11.9 Type 2 diabetes mellitus without complications; F17.210 Nicotine dependence, cigarettes, uncomplicated; R53.81 Other malaise; E86.0 Dehydration; M25.462 Effusion, left knee; Z95.0 Presence of cardiac pacemaker; Z86.73 Personal history of transient ischemic attack (TIA), and cerebral infarction without residual deficits; Z90.49 Acquired absence of other specified parts of digestive tract; Z90.710 Acquired absence of both cervix and uterus; Z98.890 Other specified postprocedural states; I07.1 Rheumatic tricuspid insufficiency; Z79.82 Long term (current) use of aspirin; Z79.84 Long term (current) use of oral hypoglycemic drugs; Z79.899 Other long term (current) drug therapy
CPT/HCPCS: 36415; 36416; 36430; 70450; 70486; 70496; 70498; 71045; 72125; 80053; 80306; 81001; 82306; 82550; 82570; 83036; 83735; 83930; 83935; 84100; 84300; 84443; 84484; 84540; 85025; 86850; 86900; 86901; 87077; 87086; 87186; 93005; 95700; 95711; 95957; 96372; 96374; 96375; 96376; G0378; J0696; J1650; J1940; J2272; J2405; J7120; P9016

== ENCOUNTER 2024-06-18 04:12 | Inpatient (IN) | payer MEDICARE ==
[2024-06-18 06:52] VITALS: BMI 22.1
[2024-06-18 08:05] LABS: Critical Call Chem Troponin I NUR.MHC; Troponin I 1.737 ng/mL (< 0.028)
[2024-06-18 08:45] LABS: Hematocrit 24.2 % (36.0-47.0); Hemoglobin 7.7 g/dL (12.0-16.0)
[2024-06-18 08:56] LABS: Anion Gap 12 mmol/L (10-20); BUN (Urea Nitrogen) 22 mg/dL (9.8-20.1); Calc. Creatinine Clearance 45 mL/min (70-130); Carbon Dioxide 26 mmol/L (23-31); Chloride 105 mmol/L (98-107); Estimated GFR 53; Glucose 89 mg/dL (83-110); Potassium 4.2 mmol/L (3.5-5.1); Sodium 139 mmol/L (136-145)
[2024-06-18] MEDS: Enoxaparin 80 MG (0.8 mL) SYRINGE SC SCH (09:48)
[2024-06-18] MEDS: cefTRIAXone\\ROCEPHIN 1 GM in Sodium Chloride 0.9% 100 ML IVPB SCH (09:50)
[2024-06-18] MEDS: Lactated Ringer's 1,000 ML IV SCH (10:36)
[2024-06-18 11:32] LABS: Iron 113 ug/dL (50-170); Iron Binding Capacity, Total 189 mcg/dL (265-497)
[2024-06-18 12:40] LABS: Ferritin 927.8 ng/mL (10-291)
[2024-06-18] MEDS: Atorvastatin Calcium 40 MG TAB PO SCH (19:29)
[2024-06-18] MEDS: HYDROcodone/Acetaminophen 5/325 mg Tablet PO PRN (19:32)
[2024-06-18] MEDS: Pregabalin 75 MG CAP PO SCH (22:21)
[2024-06-19 04:21] LABS: #Basophils 0.04 10x3/uL (0.0-0.2); %Basophils 1.2 % (0.0-1.0); %Eosinophils 8.1 % (0.0-10.0); %Lymphocytes 35.8 % (21.0-51.0); %Monocytes 13.7 % (0.0-10.0); %Neutrophils 40.9 % (42.0-75.0); Hematocrit 24.2 % (36.0-47.0); Hemoglobin 7.8 g/dL (12.0-16.0); Mean Corpuscular HGB CONC 32.2 g/dL (32.0-36.0); Mean Corpuscular Hemoglobin 31.6 pg (27.0-31.0); Mean Platelet Volume 11.1 fL (7.4-10.4); Platelet Count 184 10x3/uL (130-400); RBC Distribution Width 23.9 % (11.5-14.5); Red Blood Cell (RBC) Count 2.47 mill/uL (4.20-5.40)
[2024-06-19 04:39] LABS: Anion Gap 12 mmol/L (10-20); BUN (Urea Nitrogen) 18 mg/dL (9.8-20.1); Calc. Creatinine Clearance 48 mL/min (70-130); Calcium 9.1 mg/dL (7.8-10.44); Carbon Dioxide 25 mmol/L (23-31); Chloride 105 mmol/L (98-107); Estimated GFR 57; Glucose 92 mg/dL (83-110); Potassium 3.9 mmol/L (3.5-5.1); Sodium 138 mmol/L (136-145)
[2024-06-19 08:09] LABS: Critical Call Chem Troponin I DOWN; Troponin I 0.887 ng/mL (< 0.028)
[2024-06-19] MEDS: Potassium Chloride 20 MEQ TAB PO SCH (09:35)
[2024-06-19] MEDS: Ferrous Sulfate 325 MG TAB PO SCH (09:36)
[2024-06-19] MEDS: Cyanocobalamin (Vitamin B-12) 1,000 MCG TAB PO SCH (09:36)
[2024-06-19] MEDS: Aspirin 81 mg Enteric Coated Tablet PO SCH (09:36)
[2024-06-19] MEDS: Losartan 25 MG TAB PO SCH (14:22)
[2024-06-19] MEDS: Pregabalin 75 MG CAP PO SCH (22:55)
[2024-06-20 04:42] LABS: #Basophils 0.04 10x3/uL (0.0-0.2); %Eosinophils 5.4 % (0.0-10.0); %Lymphocytes 25.7 % (21.0-51.0); %Monocytes 13.1 % (0.0-10.0); Hematocrit 24.9 % (36.0-47.0); Mean Corpuscular HGB CONC 32.1 g/dL (32.0-36.0); Mean Corpuscular Hemoglobin 31.9 pg (27.0-31.0); Mean Corpuscular Volume 99.2 fL (78.0-98.0); Platelet Count 194 10x3/uL (130-400); RBC Distribution Width 23.2 % (11.5-14.5); Red Blood Cell (RBC) Count 2.51 mill/uL (4.20-5.40)
[2024-06-20 05:07] LABS: Anion Gap 11 mmol/L (10-20); BUN (Urea Nitrogen) 15 mg/dL (9.8-20.1); Calc. Creatinine Clearance 58 mL/min (70-130); Calcium 9.5 mg/dL (7.8-10.44); Carbon Dioxide 21 mmol/L (23-31); Chloride 110 mmol/L (98-107); Estimated GFR 71; Glucose 82 mg/dL (83-110); Potassium 4.3 mmol/L (3.5-5.1); Sodium 138 mmol/L (136-145)
[2024-06-20] MEDS: Lidocaine 4% Patch TD SCH (09:53)
[2024-06-20] MEDS: Losartan 25 MG TAB PO SCH (09:54)
[2024-06-20] MEDS: hydrOXYzine 25 MG TAB PO SCH (16:14)
[2024-06-20] MEDS: Atorvastatin Calcium 40 MG TAB PO SCH (21:33)
[2024-06-20] MEDS: Pregabalin 75 MG CAP PO SCH (21:33)
[2024-06-20] MEDS: Transdermal Patch Removal TOP SCH (21:41)
[2024-06-21 04:42] LABS: #Basophils 0.04 10x3/uL (0.0-0.2); %Basophils 0.7 % (0.0-1.0); %Lymphocytes 19.7 % (21.0-51.0); %Monocytes 12.1 % (0.0-10.0); %Neutrophils 65.2 % (42.0-75.0); Hematocrit 25.7 % (36.0-47.0); Hemoglobin 8.2 g/dL (12.0-16.0); Mean Corpuscular HGB CONC 31.9 g/dL (32.0-36.0); Mean Corpuscular Hemoglobin 31.5 pg (27.0-31.0); Mean Corpuscular Volume 98.8 fL (78.0-98.0); Mean Platelet Volume 11.9 fL (7.4-10.4); Platelet Count 212 10x3/uL (130-400); RBC Distribution Width 23.4 % (11.5-14.5)
[2024-06-21 05:01] LABS: Anion Gap 13 mmol/L (10-20); BUN (Urea Nitrogen) 17 mg/dL (9.8-20.1); Calc. Creatinine Clearance 52 mL/min (70-130); Calcium 9.6 mg/dL (7.8-10.44); Carbon Dioxide 24 mmol/L (23-31); Chloride 106 mmol/L (98-107); Estimated GFR 63; Glucose 116 mg/dL (83-110); Potassium 4.3 mmol/L (3.5-5.1); Sodium 139 mmol/L (136-145)
[2024-06-21] MEDS: Losartan 25 MG TAB PO SCH (09:08)
[2024-06-21] MEDS: Clopidogrel Bisulfate 75 MG TAB PO SCH (09:08)
[2024-06-21 15:43] VITALS: TEMP 99.6
[2024-06-21 18:15] VITALS: BP 130/62
[2024-06-22] MEDS ORDERED: Losartan 25 MG TAB PO SCH (09:00)
== END 2024-06-21 18:48 | DRG 811 ==
LOC: 2NO 06:24
PROVIDERS: ADMIT Family Medicine; ATTEND Family Medicine
DX: D46.9 Myelodysplastic syndrome, unspecified (principal); I21.A1 Myocardial infarction type 2; I48.21 Permanent atrial fibrillation; N39.0 Urinary tract infection, site not specified; I25.10 Atherosclerotic heart disease of native coronary artery without angina pectoris; E11.9 Type 2 diabetes mellitus without complications; I11.0 Hypertensive heart disease with heart failure; I50.9 Heart failure, unspecified; J44.9 Chronic obstructive pulmonary disease, unspecified; F17.210 Nicotine dependence, cigarettes, uncomplicated; G25.81 Restless legs syndrome; R91.1 Solitary pulmonary nodule; E04.2 Nontoxic multinodular goiter; Z86.73 Personal history of transient ischemic attack (TIA), and cerebral infarction without residual deficits; Z95.0 Presence of cardiac pacemaker; Z79.82 Long term (current) use of aspirin; Z79.899 Other long term (current) drug therapy; Z90.49 Acquired absence of other specified parts of digestive tract; Z90.710 Acquired absence of both cervix and uterus; Z79.891 Long term (current) use of opiate analgesic
CPT/HCPCS: 36415; 36430; 70496; 80048; 80053; 81001; 82607; 82728; 83090; 83540; 83550; 84443; 84466; 84484; 85014; 85018; 85025; 85046; 86850; 86900; 86901; 87086; 93005; J0696; J1650; J7120; P9016

== ENCOUNTER 2024-07-24 21:16 | Inpatient (IN) | payer MEDICARE ==
[2024-07-24 23:35] VITALS: BMI 22.2
[2024-07-25] MEDS: HYDROcodone/Acetaminophen 5/325 mg Tablet PO PRN (00:31)
[2024-07-25] MEDS: Furosemide 40 MG (4 mL) VIAL SLOW IVP SCH (00:32)
[2024-07-25] MEDS ORDERED: Glucagon 1 MG/ML KIT IM PRN (01:00)
[2024-07-25] MEDS ORDERED: Insulin Lispro 100 UNIT/ML 10 ML VIAL SC PRN ×2 (01:00)
[2024-07-25] MEDS ORDERED: Dextrose 50% Abboject 50 ML SYRINGE SLOW IVP PRN (01:00)
[2024-07-25] MEDS ORDERED: Dextrose 5% in Water 1,000 ML IV PRN (01:00)
[2024-07-25] MEDS: Senokot 8.6 MG TAB PO SCH ×3 (01:33→09:18)
[2024-07-25] MEDS: Polyethylene Glycol 3350 17 GM Packet PO SCH ×2 (01:33→09:17)
[2024-07-25 04:54] LABS: #Basophils 0.03 10x3/uL (0.0-0.2); %Basophils 0.8 % (0.0-1.0); %Eosinophils 3.9 % (0.0-10.0); %Lymphocytes 31.3 % (21.0-51.0); %Monocytes 11.7 % (0.0-10.0); Hematocrit 22.1 % (36.0-47.0); Hemoglobin 7.1 g/dL (12.0-16.0); Mean Corpuscular HGB CONC 32.1 g/dL (32.0-36.0); Mean Corpuscular Hemoglobin 30.6 pg (27.0-31.0); Mean Corpuscular Volume 95.3 fL (78.0-98.0); Mean Platelet Volume 11.5 fL (7.4-10.4); Platelet Count 173 10x3/uL (130-400); RBC Distribution Width 24.2 % (11.5-14.5); Red Blood Cell (RBC) Count 2.32 mill/uL (4.20-5.40)
[2024-07-25 05:26] LABS: Anisocytosis SLIGHT = 6-15 cells HPF (0-5); Elliptocytes SLIGHT = 2-5 cells HPF (0-1); Hypochromia SLIGHT = 6-15 cells HPF (0-5); Platelet Adequacy Comment Platelets Normal; Polychromasia SLIGHT = 2-3 cells HPF (0-2); Tear Drops SLIGHT = 2-5 cells HPF (0-1)
[2024-07-25 05:56] LABS: ALT (SGPT) 21 U/L (8-55); AST (SGOT) 29 U/L (5-34); Albumin 3.8 g/dL (3.4-4.8); Alkaline Phosphatase 95 U/L (40-110); Anion Gap 12 mmol/L (10-20); BUN (Urea Nitrogen) 21 mg/dL (9.8-20.1); Bilirubin, Total 1.6 mg/dL (0.2-1.2); Calc. Creatinine Clearance 48 mL/min (70-130); Calcium 9.3 mg/dL (7.8-10.44); Carbon Dioxide 27 mmol/L (23-31); Chloride 103 mmol/L (98-107); Estimated GFR 57; Globulin 2.6 g/dL (2.4-3.5); Glucose 93 mg/dL (83-110); Potassium 3.7 mmol/L (3.5-5.1); Protein, Total 6.4 g/dL (5.8-8.1); Sodium 138 mmol/L (136-145)
[2024-07-25] MEDS: Enoxaparin 40 MG (0.4 mL) SYRINGE SC SCH (09:18)
[2024-07-25] MEDS: Magnesium Citrate 300 ML BOT PO SCH (09:18)
[2024-07-25] MEDS: Lidocaine 4% Patch TD SCH (09:19)
[2024-07-25] MEDS: Aspirin 81 mg Enteric Coated Tablet PO SCH (09:19)
[2024-07-25] MEDS: Potassium Chloride 20 MEQ TAB PO SCH (09:19)
[2024-07-25] MEDS: Cyanocobalamin (Vitamin B-12) 1,000 MCG TAB PO SCH (09:19)
[2024-07-25] MEDS: Pregabalin 75 MG CAP PO SCH (09:19)
[2024-07-25] MEDS: Losartan 25 MG TAB PO SCH (09:19)
[2024-07-25] MEDS: Ferrous Sulfate 325 MG TAB PO SCH (09:19)
[2024-07-25] MEDS: Furosemide 20 MG TAB PO SCH ×2 (10:58→16:28)
[2024-07-25 11:45] VITALS: BMI 22.2
[2024-07-25] MEDS: Atorvastatin Calcium 40 MG TAB PO SCH (20:40)
[2024-07-25] MEDS: Transdermal Patch Removal TOP SCH (20:44)
[2024-07-26 02:12] LABS: Hematocrit 23.5 % (36.0-47.0); Hemoglobin 7.6 g/dL (12.0-16.0)
[2024-07-26 04:28] LABS: #Basophils 0.03 10x3/uL (0.0-0.2); %Basophils 0.8 % (0.0-1.0); %Eosinophils 6.4 % (0.0-10.0); %Lymphocytes 37.5 % (21.0-51.0); %Monocytes 13.4 % (0.0-10.0); %Neutrophils 41.6 % (42.0-75.0); Hematocrit 25.4 % (36.0-47.0); Hemoglobin 8.3 g/dL (12.0-16.0); Mean Corpuscular HGB CONC 32.7 g/dL (32.0-36.0); Mean Corpuscular Hemoglobin 31.6 pg (27.0-31.0); Mean Corpuscular Volume 96.6 fL (78.0-98.0); Mean Platelet Volume 11.3 fL (7.4-10.4); Platelet Count 180 10x3/uL (130-400); RBC Distribution Width 23.8 % (11.5-14.5); Red Blood Cell (RBC) Count 2.63 mill/uL (4.20-5.40)
[2024-07-26 04:52] LABS: ALT (SGPT) 18 U/L (8-55); AST (SGOT) 22 U/L (5-34); Albumin 3.7 g/dL (3.4-4.8); Alkaline Phosphatase 93 U/L (40-110); Anion Gap 10 mmol/L (10-20); BUN (Urea Nitrogen) 20 mg/dL (9.8-20.1); Bilirubin, Total 2.2 mg/dL (0.2-1.2); Calc. Creatinine Clearance 46 mL/min (70-130); Calcium 9.1 mg/dL (7.8-10.44); Carbon Dioxide 32 mmol/L (23-31); Chloride 101 mmol/L (98-107); Estimated GFR 55; Globulin 2.5 g/dL (2.4-3.5); Glucose 90 mg/dL (83-110); Potassium 3.8 mmol/L (3.5-5.1); Protein, Total 6.2 g/dL (5.8-8.1); Sodium 139 mmol/L (136-145)
[2024-07-26] MEDS: Furosemide 20 MG TAB PO SCH (10:10)
[2024-07-26 12:42] VITALS: BP 151/67; TEMP 97.5
== END 2024-07-26 14:30 | disposition home or self-care (01) | DRG 291 ==
LOC: 2NO 22:31 → OBSVTOIN 07-25 16:01
PROVIDERS: ADMIT Family Medicine; ATTEND Family Medicine
PROC: 30233N1 Transfusion of Nonautologous Red Blood Cells into Peripheral Vein, Percutaneous Approach (ICD-10-PCS; principal; 2024-07-25)
DX: I11.0 Hypertensive heart disease with heart failure (principal); I50.33 Acute on chronic diastolic (congestive) heart failure; M84.48XA Pathological fracture, other site, initial encounter for fracture; E11.9 Type 2 diabetes mellitus without complications; Z95.0 Presence of cardiac pacemaker; J44.9 Chronic obstructive pulmonary disease, unspecified; I48.91 Unspecified atrial fibrillation; E78.5 Hyperlipidemia, unspecified; D46.9 Myelodysplastic syndrome, unspecified; Z79.82 Long term (current) use of aspirin; Z79.899 Other long term (current) drug therapy; Z90.49 Acquired absence of other specified parts of digestive tract; Z90.89 Acquired absence of other organs; Z90.710 Acquired absence of both cervix and uterus; K59.03 Drug induced constipation; Z66 Do not resuscitate; E80.6 Other disorders of bilirubin metabolism
CPT/HCPCS: 36415; 36416; 36430; 71045; 72072; 72100; 80053; 81001; 83690; 83735; 83880; 84484; 85025; 86850; 86900; 86901; 87428; 93005; J1650; J1940; P9016

== ENCOUNTER 2025-03-30 14:39 | Inpatient (IN) | payer MEDICARE ==
[~2025-03-30 14:39] MED LIST: Iopamidol-370 76% 500 ML MDV (1 ML CHARGE) ONE
[2025-03-30 15:33] LABS: #Basophils 0.04 10x3/uL (0.0-0.2); #Eosinophils 0.04 10x3/uL (0.0-0.7); #Monocytes 0.59 10x3/uL (0.11-0.59); #Neutrophils 1.76 10x3/uL (1.40-6.50); %Basophils 1.3 % (0.0-1.0); %Eosinophils 1.3 % (0.0-10.0); %Lymphocytes 21.3 % (21.0-51.0); %Monocytes 19.0 % (0.0-10.0); %Neutrophils 56.8 % (42.0-75.0); Hematocrit 20.7 % (36.0-47.0); Hemoglobin 6.8 g/dL (12.0-16.0); Mean Corpuscular Hemoglobin 31.1 pg (27.0-31.0); Mean Corpuscular Volume 94.5 fL (78.0-98.0); Platelet Count 174 10x3/uL (130-400); Red Blood Cell (RBC) Count 2.19 mill/uL (4.20-5.40); White Blood Cell (WBC) Count 3.10 10x3/uL (4.8-10.8)
[2025-03-30] MEDS ORDERED: Ondansetron PF 4 MG/2 ML Vial ONE ×2 (15:37→19:39)
[2025-03-30 15:50] LABS: ALT (SGPT) 21 U/L (Less than 34); AST (SGOT) 34 U/L (11-34); Albumin 3.8 g/dL (3.1-4.5); Alkaline Phosphatase 87 U/L (40-110); Anion Gap 13 mmol/L (10-20); BUN (Urea Nitrogen) 13 mg/dL (9.8-20.1); Bilirubin, Total 1.9 mg/dL (0.3-1.2); CK (CPK) 73 U/L (29-168); Calc. Creatinine Clearance 0 mL/min (70-130); Calcium 9.9 mg/dL (7.8-10.44); Carbon Dioxide 26 mmol/L (23-31); Chloride 101 mmol/L (98-107); Globulin 2.4 g/dL (2.4-3.5); Glucose 96 mg/dL (83-110); Magnesium 2.0 mg/dL (1.6-2.6); Potassium 4.0 mmol/L (3.5-5.1); Sodium 136 mmol/L (136-145)
[2025-03-30] MEDS ORDERED: Furosemide 40 MG (4 mL) VIAL ONE (17:31)
[2025-03-30] MEDS ORDERED: Furosemide 20 MG (2 mL) VIAL ONE (17:34)
[2025-03-30 17:35] LABS: INR-International Normal Ratio 1.2; Prothrombin Time 15.4 sec (12.0-14.7)
[2025-03-30 17:41] LABS: Glucose, Urine (Dipstick) Negative (Negative); Leukocyte Negative (Negative); Protein, Urine (Dipstick) Trace mg/dL (Neg-Trace)
[2025-03-30 17:43] LABS: Specific Gravity, Urine 1.025 (1.005-1.030)
[2025-03-30 17:45] LABS: Bacteria/HPF None Seen HPF (None Seen); CAUTI Indications for Culture Acute Hematuria; WBC/HPF 0-3 HPF (0-3)
[2025-03-30 17:47] LABS: Urine Culture Reflex No No
[2025-03-30] MEDS ORDERED: Ondansetron PF 4 MG/2 ML Vial IVP PRN (20:12)
[2025-03-30] MEDS ORDERED: Dextrose 50% Abboject 50 ML SYRINGE SLOW IVP PRN (22:05)
[2025-03-30] MEDS ORDERED: Glucagon 1 MG/ML KIT IM PRN (22:05)
[2025-03-30 23:34] VITALS: BMI 25.8
[2025-03-31] MEDS: diphenhydrAMINE 50 MG/ML VIAL IVP SCH (00:23)
[2025-03-31] MEDS: Furosemide 20 MG (2 mL) VIAL SLOW IVP SCH (00:23)
[2025-03-31] MEDS: Melatonin 3 MG TAB PO SCH (00:23)
[2025-03-31 05:07] LABS: #Basophils 0.04 10x3/uL (0.0-0.2); #Eosinophils 0.03 10x3/uL (0.0-0.7); #Monocytes 0.77 10x3/uL (0.11-0.59); #Neutrophils 2.59 10x3/uL (1.40-6.50); %Basophils 1.0 % (0.0-1.0); %Eosinophils 0.7 % (0.0-10.0); %Lymphocytes 15.9 % (21.0-51.0); %Monocytes 18.8 % (0.0-10.0); %Neutrophils 63.1 % (42.0-75.0); Hematocrit 22.0 % (36.0-47.0); Hemoglobin 7.2 g/dL (12.0-16.0); Mean Corpuscular Hemoglobin 31.0 pg (27.0-31.0); Mean Corpuscular Volume 94.8 fL (78.0-98.0); Platelet Count 173 10x3/uL (130-400); Red Blood Cell (RBC) Count 2.32 mill/uL (4.20-5.40); White Blood Cell (WBC) Count 4.10 10x3/uL (4.8-10.8)
[2025-03-31 05:22] LABS: ALT (SGPT) Less than 7 U/L (Less than 34); AST (SGOT) 39 U/L (11-34); Albumin 3.7 g/dL (3.1-4.5); Alkaline Phosphatase 81 U/L (40-110); Anion Gap 14 mmol/L (10-20); BUN (Urea Nitrogen) 15 mg/dL (9.8-20.1); Bilirubin, Total 4.1 mg/dL (0.3-1.2); Calc. Creatinine Clearance 47 mL/min (70-130); Calcium 9.3 mg/dL (7.8-10.44); Carbon Dioxide 27 mmol/L (23-31); Chloride 98 mmol/L (98-107); Globulin 2.0 g/dL (2.4-3.5); Glucose 94 mg/dL (83-110); Potassium 3.6 mmol/L (3.5-5.1); Sodium 135 mmol/L (136-145)
[2025-03-31 05:28] LABS: Iron 174 ug/dL (50-170); Iron Binding Capacity, Total 175 mcg/dL (265-497)
[2025-03-31] MEDS ORDERED: Spironolactone 25 MG TAB PO SCH (08:00)
[2025-03-31] MEDS: Ferrous Sulfate 325 MG TAB PO SCH (08:45)
[2025-03-31] MEDS: Cyanocobalamin (Vitamin B-12) 1,000 MCG TAB PO SCH (08:45)
[2025-03-31] MEDS: Spironolactone 25 MG TAB PO SCH (08:46)
[2025-03-31 13:09] VITALS: BMI 25.8
[2025-03-31 13:52] LABS: Hematocrit 24.7 % (36.0-47.0); Hemoglobin 7.9 g/dL (12.0-16.0)
[2025-03-31 14:45] LABS: Hep A IgM AB NONREACTIVE (NonReactive); Hep A IgM S/CO 0.16 S/CO (0-0.79); Hep B Core IgM Index 0.09 S/CO (0-0.79); Hep B Surf Ag NONREACTIVE S/CO (NonReactive); Hep C IgG Ab NONREACTIVE S/CO (NonReactive); Hep C Index 0.09 S/CO (0-0.79)
[2025-03-31] MEDS: Acetaminophen 325 MG TAB PO PRN (21:12)
[2025-04-01 05:29] LABS: #Basophils 0.04 10x3/uL (0.0-0.2); #Eosinophils 0.14 10x3/uL (0.0-0.7); #Monocytes 0.65 10x3/uL (0.11-0.59); #Neutrophils 1.51 10x3/uL (1.40-6.50); %Basophils 1.2 % (0.0-1.0); %Eosinophils 4.3 % (0.0-10.0); %Lymphocytes 28.4 % (21.0-51.0); %Monocytes 19.8 % (0.0-10.0); %Neutrophils 46.0 % (42.0-75.0); Hematocrit 22.8 % (36.0-47.0); Hemoglobin 7.1 g/dL (12.0-16.0); Mean Corpuscular Hemoglobin 30.1 pg (27.0-31.0); Mean Corpuscular Volume 96.6 fL (78.0-98.0); Platelet Count 176 10x3/uL (130-400); Red Blood Cell (RBC) Count 2.36 mill/uL (4.20-5.40); White Blood Cell (WBC) Count 3.28 10x3/uL (4.8-10.8)
[2025-04-01 05:46] LABS: ALT (SGPT) 22 U/L (Less than 34); AST (SGOT) 41 U/L (11-34); Albumin 3.4 g/dL (3.1-4.5); Alkaline Phosphatase 85 U/L (40-110); Anion Gap 11 mmol/L (10-20); BUN (Urea Nitrogen) 17 mg/dL (9.8-20.1); Bilirubin, Total 2.3 mg/dL (0.3-1.2); Calc. Creatinine Clearance 53 mL/min (70-130); Calcium 9.0 mg/dL (7.8-10.44); Carbon Dioxide 26 mmol/L (23-31); Chloride 97 mmol/L (98-107); Globulin 2.0 g/dL (2.4-3.5); Glucose 119 mg/dL (83-110); Potassium 3.9 mmol/L (3.5-5.1); Sodium 130 mmol/L (136-145)
[2025-04-01 08:39] LABS: Magnesium 1.8 mg/dL (1.6-2.6)
[2025-04-01] MEDS: Magnesium 2 GM/50 ML(in water) 2 GM in Premix 1 BAG IVPB SCH (09:28)
[2025-04-01] MEDS: Losartan 25 MG TAB PO SCH (09:29)
[2025-04-01 09:41] LABS: Hematocrit 25.6 % (36.0-47.0); Hemoglobin 7.9 g/dL (12.0-16.0)
[2025-04-01] MEDS ORDERED: Melatonin 3 MG TAB PO PRN (23:30)
[2025-04-01] MEDS: Melatonin 3 MG TAB PO PRN (23:42)
[2025-04-02 05:14] LABS: Hematocrit 22.8 % (36.0-47.0); Hemoglobin 7.4 g/dL (12.0-16.0); Mean Corpuscular Hemoglobin 31.2 pg (27.0-31.0); Mean Corpuscular Volume 96.2 fL (78.0-98.0); Platelet Count 224 10x3/uL (130-400); Red Blood Cell (RBC) Count 2.37 mill/uL (4.20-5.40); White Blood Cell (WBC) Count 3.08 10x3/uL (4.8-10.8)
[2025-04-02 05:26] LABS: ALT (SGPT) 23 U/L (Less than 34); AST (SGOT) 34 U/L (11-34); Albumin 3.5 g/dL (3.1-4.5); Alkaline Phosphatase 97 U/L (40-110); Anion Gap 9 mmol/L (10-20); BUN (Urea Nitrogen) 13 mg/dL (9.8-20.1); Bilirubin, Total 1.8 mg/dL (0.3-1.2); Calc. Creatinine Clearance 55 mL/min (70-130); Calcium 9.0 mg/dL (7.8-10.44); Carbon Dioxide 26 mmol/L (23-31); Chloride 100 mmol/L (98-107); Globulin 2.2 g/dL (2.4-3.5); Glucose 111 mg/dL (83-110); Potassium 4.4 mmol/L (3.5-5.1); Sodium 131 mmol/L (136-145)
[2025-04-02 06:26] LABS: Anisocytosis MODERATE=16-30 cells HPF (0-5); Microcytosis SLIGHT = 6-15 cells HPF (0-5); Nucleated RBC (Manual Ct) 1 % (0); Ovalocytes SLIGHT = 2-5 cells HPF (0-1); Platelet Adequacy Comment Platelets Normal; Schistocytes SLIGHT = 2-5 cells HPF (0-1); Smudge Cells 12.7 %; Target Cells SLIGHT = 2-5 cells HPF (0-1)
[2025-04-02 08:53] LABS: Magnesium 2.1 mg/dL (1.6-2.6)
[2025-04-02] MEDS: Losartan 25 MG TAB PO SCH (09:07)
[2025-04-02 14:55] LABS: Hematocrit 22.0 % (36.0-47.0); Hemoglobin 7.0 g/dL (12.0-16.0)
[2025-04-03] MEDS ORDERED: hydrALAZINE 20 MG/ML VIAL SLOW IVP PRN (00:12)
[2025-04-03] MEDS: Losartan 25 MG TAB PO SCH ×2 (00:42→08:41)
[2025-04-03 05:42] LABS: #Basophils 0.03 10x3/uL (0.0-0.2); #Eosinophils 0.18 10x3/uL (0.0-0.7); #Monocytes 0.45 10x3/uL (0.11-0.59); #Neutrophils 1.00 10x3/uL (1.40-6.50); %Basophils 1.3 % (0.0-1.0); %Eosinophils 7.5 % (0.0-10.0); %Lymphocytes 30.8 % (21.0-51.0); %Monocytes 18.8 % (0.0-10.0); %Neutrophils 41.6 % (42.0-75.0); Hematocrit 23.1 % (36.0-47.0); Hemoglobin 7.3 g/dL (12.0-16.0); Mean Corpuscular Hemoglobin 30.7 pg (27.0-31.0); Mean Corpuscular Volume 97.1 fL (78.0-98.0); Platelet Count 232 10x3/uL (130-400); Red Blood Cell (RBC) Count 2.38 mill/uL (4.20-5.40); White Blood Cell (WBC) Count 2.40 10x3/uL (4.8-10.8)
[2025-04-03 06:11] LABS: ALT (SGPT) 22 U/L (Less than 34); AST (SGOT) 30 U/L (11-34); Albumin 3.7 g/dL (3.1-4.5); Alkaline Phosphatase 94 U/L (40-110); Anion Gap 9 mmol/L (10-20); BUN (Urea Nitrogen) 13 mg/dL (9.8-20.1); Bilirubin, Total 1.7 mg/dL (0.3-1.2); Calc. Creatinine Clearance 62 mL/min (70-130); Calcium 9.5 mg/dL (7.8-10.44); Carbon Dioxide 28 mmol/L (23-31); Chloride 98 mmol/L (98-107); Globulin 2.1 g/dL (2.4-3.5); Glucose 124 mg/dL (83-110); Potassium 4.4 mmol/L (3.5-5.1); Sodium 131 mmol/L (136-145)
[2025-04-03] MEDS ORDERED: Losartan 25 MG TAB PO SCH (09:00)
[2025-04-03 14:18] LABS: Magnesium 1.9 mg/dL (1.6-2.6)
[2025-04-03] MEDS: Magnesium 2 GM/50 ML(in water) 2 GM in Premix 1 BAG IVPB SCH (15:13)
[2025-04-04 04:31] LABS: Hematocrit 22.9 % (36.0-47.0); Hemoglobin 7.3 g/dL (12.0-16.0); Mean Corpuscular Hemoglobin 30.8 pg (27.0-31.0); Mean Corpuscular Volume 96.6 fL (78.0-98.0); Platelet Count 238 10x3/uL (130-400); Red Blood Cell (RBC) Count 2.37 mill/uL (4.20-5.40); White Blood Cell (WBC) Count 2.56 10x3/uL (4.8-10.8)
[2025-04-04 04:48] LABS: ALT (SGPT) 19 U/L (Less than 34); AST (SGOT) 35 U/L (11-34); Albumin 3.7 g/dL (3.1-4.5); Alkaline Phosphatase 86 U/L (40-110); Anion Gap 9 mmol/L (10-20); BUN (Urea Nitrogen) 12 mg/dL (9.8-20.1); Bilirubin, Total 1.7 mg/dL (0.3-1.2); Calc. Creatinine Clearance 54 mL/min (70-130); Calcium 9.7 mg/dL (7.8-10.44); Carbon Dioxide 28 mmol/L (23-31); Chloride 96 mmol/L (98-107); Globulin 2.1 g/dL (2.4-3.5); Glucose 127 mg/dL (83-110); Potassium 4.7 mmol/L (3.5-5.1); Sodium 128 mmol/L (136-145)
[2025-04-04 05:52] LABS: Magnesium 2.2 mg/dL (1.6-2.6)
[2025-04-04 06:30] LABS: Anisocytosis MODERATE=16-30 cells HPF (0-5); Microcytosis SLIGHT = 6-15 cells HPF (0-5); Ovalocytes SLIGHT = 2-5 cells HPF (0-1); Platelet Adequacy Comment Platelets Normal; Polychromasia SLIGHT = 2-3 cells HPF (0-2); Schistocytes SLIGHT = 2-5 cells HPF (0-1); Smudge Cells 6.6 %
[2025-04-04] MEDS: Losartan 25 MG TAB PO SCH (09:19)
[2025-04-04] MEDS ORDERED: Furosemide 20 MG TAB PO SCH (21:00)
[2025-04-04] MEDS: Cyclobenzaprine 10 MG TAB PO SCH (23:34)
[2025-04-05 04:59] LABS: Hematocrit 20.3 % (36.0-47.0); Hemoglobin 6.5 g/dL (12.0-16.0); Mean Corpuscular Hemoglobin 31.0 pg (27.0-31.0); Mean Corpuscular Volume 96.7 fL (78.0-98.0); Platelet Count 193 10x3/uL (130-400); Red Blood Cell (RBC) Count 2.10 mill/uL (4.20-5.40); White Blood Cell (WBC) Count 2.54 10x3/uL (4.8-10.8)
[2025-04-05 05:07] LABS: ALT (SGPT) 19 U/L (Less than 34); AST (SGOT) 29 U/L (11-34); Albumin 3.2 g/dL (3.1-4.5); Alkaline Phosphatase 82 U/L (40-110); Anion Gap 9 mmol/L (10-20); BUN (Urea Nitrogen) 13 mg/dL (9.8-20.1); Bilirubin, Total 1.5 mg/dL (0.3-1.2); Calc. Creatinine Clearance 60 mL/min (70-130); Calcium 9.1 mg/dL (7.8-10.44); Carbon Dioxide 27 mmol/L (23-31); Chloride 95 mmol/L (98-107); Globulin 2.0 g/dL (2.4-3.5); Glucose 88 mg/dL (83-110); Potassium 4.1 mmol/L (3.5-5.1); Sodium 127 mmol/L (136-145)
[2025-04-05 05:56] LABS: Anisocytosis SLIGHT = 6-15 cells HPF (0-5); Platelet Adequacy Comment Platelets Normal; Polychromasia SLIGHT = 2-3 cells HPF (0-2); Schistocytes SLIGHT = 2-5 cells HPF (0-1); Smudge Cells 7.8 %
[2025-04-05 08:00] LABS: Magnesium 1.8 mg/dL (1.6-2.6)
[2025-04-05] MEDS: Furosemide 20 MG TAB PO SCH (08:11)
[2025-04-05 16:28] VITALS: TEMP 97.7
[2025-04-05 17:18] LABS: Hematocrit 26.0 % (36.0-47.0); Hemoglobin 8.4 g/dL (12.0-16.0)
[2025-04-05 18:06] VITALS: BP 141/64
== END 2025-04-05 18:12 | DRG 811 ==
LOC: ERS 14:39 → 2NO 19:40 → OBSVTOIN 03-31 16:10 → MSONC 04-04 21:21
PROVIDERS: ADMIT Family Medicine; ATTEND Family Medicine
PROC: 30233N1 Transfusion of Nonautologous Red Blood Cells into Peripheral Vein, Percutaneous Approach (ICD-10-PCS; principal; 2025-03-31)
DX: D46.9 Myelodysplastic syndrome, unspecified (principal); J96.01 Acute respiratory failure with hypoxia; I50.32 Chronic diastolic (congestive) heart failure; Z66 Do not resuscitate; I11.0 Hypertensive heart disease with heart failure; E86.0 Dehydration; I48.91 Unspecified atrial fibrillation; E11.9 Type 2 diabetes mellitus without complications; E80.6 Other disorders of bilirubin metabolism; Z95.0 Presence of cardiac pacemaker; Z79.899 Other long term (current) drug therapy
CPT/HCPCS: 36415; 36416; 36430; 51701; 71045; 71275; 76705; 80053; 80074; 81001; 82248; 82550; 82728; 83010; 83540; 83550; 83605; 83735; 83880; 84484; 85025; 85379; 85610; 86850; 86900; 86901; 93005; 93306; 96374; 96375; 96376; 97139; G0378; J1200; J1940; J3475; J7120; P9016; Q9967

== ENCOUNTER 2025-04-17 15:30 | Observation (INO) | payer MEDICARE ==
[2025-04-17 16:54] LABS: Hematocrit 20.4 % (36.0-47.0); Hemoglobin 6.4 g/dL (12.0-16.0); Mean Corpuscular Hemoglobin 30.9 pg (27.0-31.0); Mean Corpuscular Volume 98.6 fL (78.0-98.0); Platelet Count 174 10x3/uL (130-400); Red Blood Cell (RBC) Count 2.07 mill/uL (4.20-5.40); White Blood Cell (WBC) Count 1.85 10x3/uL (4.8-10.8)
[2025-04-17 17:18] LABS: Anisocytosis MODERATE=16-30 cells HPF (0-5); Macrocytosis MODERATE=16-30 cells HPF (0-5); Platelet Adequacy Comment Platelets Normal; Polychromasia MODERATE = 3-4 cells HPF (0-2); Schistocytes SLIGHT = 2-5 cells HPF (0-1); Smudge Cells 2.9 %
[2025-04-17 17:30] LABS: ALT (SGPT) 18 U/L (Less than 34); AST (SGOT) 28 U/L (11-34); Albumin 3.6 g/dL (3.1-4.5); Alkaline Phosphatase 89 U/L (40-110); Anion Gap 12 mmol/L (10-20); BUN (Urea Nitrogen) 17 mg/dL (9.8-20.1); Bilirubin, Total 1.2 mg/dL (0.3-1.2); Calc. Creatinine Clearance 0 mL/min (70-130); Calcium 9.5 mg/dL (7.8-10.44); Carbon Dioxide 27 mmol/L (23-31); Chloride 102 mmol/L (98-107); Globulin 2.2 g/dL (2.4-3.5); Glucose 100 mg/dL (83-110); Potassium 4.4 mmol/L (3.5-5.1); Sodium 137 mmol/L (136-145)
[2025-04-17] MEDS ORDERED: ALPRAZolam 0.25 MG TAB ONE (19:51)
[2025-04-17] MEDS ORDERED: Furosemide 40 MG (4 mL) VIAL ONE (22:30)
[2025-04-18] MEDS ORDERED: Melatonin 3 MG TAB PO PRN (01:33)
[2025-04-18] MEDS ORDERED: Acetaminophen 325 MG TAB PO PRN (01:33)
[2025-04-18 03:58] LABS: Hematocrit 24.2 % (36.0-47.0); Hemoglobin 7.9 g/dL (12.0-16.0); Mean Corpuscular Hemoglobin 31.5 pg (27.0-31.0); Mean Corpuscular Volume 96.4 fL (78.0-98.0); Platelet Count 178 10x3/uL (130-400); Red Blood Cell (RBC) Count 2.51 mill/uL (4.20-5.40); White Blood Cell (WBC) Count 1.89 10x3/uL (4.8-10.8)
[2025-04-18 04:23] LABS: ALT (SGPT) 20 U/L (Less than 34); AST (SGOT) 28 U/L (11-34); Albumin 3.8 g/dL (3.1-4.5); Alkaline Phosphatase 90 U/L (40-110); Anion Gap 14 mmol/L (10-20); BUN (Urea Nitrogen) 18 mg/dL (9.8-20.1); Bilirubin, Total 1.9 mg/dL (0.3-1.2); Calc. Creatinine Clearance 0 mL/min (70-130); Calcium 10.0 mg/dL (7.8-10.44); Carbon Dioxide 28 mmol/L (23-31); Chloride 102 mmol/L (98-107); Globulin 2.4 g/dL (2.4-3.5); Glucose 96 mg/dL (83-110); Potassium 4.0 mmol/L (3.5-5.1); Sodium 140 mmol/L (136-145)
[2025-04-18 04:46] LABS: Anisocytosis SLIGHT = 6-15 cells HPF (0-5); Platelet Adequacy Comment Platelets Normal; Poikilocytosis SLIGHT = 6-15 cells HPF (0-5); Schistocytes SLIGHT = 2-5 cells HPF (0-1); Smudge Cells 9.8 %
[2025-04-18] MEDS: Aspirin 81 mg Enteric Coated Tablet PO SCH (08:41)
[2025-04-18] MEDS: Furosemide 20 MG TAB PO SCH (08:43)
[2025-04-18] MEDS: Cyanocobalamin (Vitamin B-12) 1,000 MCG TAB PO SCH (08:43)
[2025-04-18] MEDS: Losartan 25 MG TAB PO SCH (08:44)
[2025-04-18] MEDS: Transdermal Patch Removal TOP SCH (14:19)
[2025-04-18 14:54] VITALS: BP 131/62; TEMP 98.3; BMI 20.9
== END 2025-04-18 14:38 ==
LOC: ERS 15:30 → 2NO 04-18 01:30
PROVIDERS: ADMIT Family Medicine; ATTEND Family Medicine
DX: D64.9 Anemia, unspecified (principal); I11.0 Hypertensive heart disease with heart failure; I50.30 Unspecified diastolic (congestive) heart failure; I48.91 Unspecified atrial fibrillation; E11.9 Type 2 diabetes mellitus without complications; E78.00 Pure hypercholesterolemia, unspecified; K21.9 Gastro-esophageal reflux disease without esophagitis; Z95.0 Presence of cardiac pacemaker; Z90.710 Acquired absence of both cervix and uterus; Z90.49 Acquired absence of other specified parts of digestive tract; Z90.89 Acquired absence of other organs; Z79.82 Long term (current) use of aspirin; Z79.899 Other long term (current) drug therapy
CPT/HCPCS: 36430; 71045; 80053 ×2; 82962; 83880; 84484 ×2; 85025 ×2; 86850; 86900; 86901; 86920; 93005; 96374; 99285; G0378 ×2; J1940; P9016; 36415; 36416

== ENCOUNTER 2025-04-24 23:50 | Emergency (ER) | payer MEDICARE ==
[2025-04-25 00:35] LABS: #Basophils 0.04 10x3/uL (0.0-0.2); #Eosinophils 0.15 10x3/uL (0.0-0.7); #Monocytes 0.56 10x3/uL (0.11-0.59); #Neutrophils 1.95 10x3/uL (1.40-6.50); %Basophils 1.0 % (0.0-1.0); %Eosinophils 3.9 % (0.0-10.0); %Lymphocytes 29.2 % (21.0-51.0); %Monocytes 14.6 % (0.0-10.0); %Neutrophils 50.8 % (42.0-75.0); Hematocrit 21.7 % (36.0-47.0); Hemoglobin 7.1 g/dL (12.0-16.0); Mean Corpuscular Hemoglobin 31.6 pg (27.0-31.0); Mean Corpuscular Volume 96.4 fL (78.0-98.0); Platelet Count 177 10x3/uL (130-400); Red Blood Cell (RBC) Count 2.25 mill/uL (4.20-5.40); White Blood Cell (WBC) Count 3.84 10x3/uL (4.8-10.8)
[2025-04-25 00:51] LABS: ALT (SGPT) 14 U/L (Less than 34); AST (SGOT) 25 U/L (11-34); Albumin 3.7 g/dL (3.1-4.5); Alkaline Phosphatase 105 U/L (40-110); Anion Gap 11 mmol/L (10-20); BUN (Urea Nitrogen) 18 mg/dL (9.8-20.1); Bilirubin, Total 1.0 mg/dL (0.3-1.2); Calc. Creatinine Clearance 0 mL/min (70-130); Calcium 9.1 mg/dL (7.8-10.44); Carbon Dioxide 27 mmol/L (23-31); Chloride 100 mmol/L (98-107); Globulin 2.2 g/dL (2.4-3.5); Glucose 105 mg/dL (83-110); Potassium 4.0 mmol/L (3.5-5.1); Sodium 134 mmol/L (136-145)
[2025-04-25 01:43] LABS: Iron 209 ug/dL (50-170); Iron Binding Capacity, Total 196 mcg/dL (265-497)
== END 2025-04-25 04:21 ==
LOC: ERS 23:50
DX: D64.9 Anemia, unspecified (principal); I50.9 Heart failure, unspecified; E11.9 Type 2 diabetes mellitus without complications; I48.91 Unspecified atrial fibrillation; Z79.899 Other long term (current) drug therapy; Z79.82 Long term (current) use of aspirin; Z79.01 Long term (current) use of anticoagulants; Z95.0 Presence of cardiac pacemaker
CPT/HCPCS: 80053; 82728; 83540; 83550; 83615; 85025; 85046; 86850; 86900; 86901; 99284

== ENCOUNTER 2025-05-26 11:35 | Emergency (ER) | payer MEDICARE ==
[2025-05-26 12:37] LABS: #Basophils 0.05 10x3/uL (0.0-0.2); #Eosinophils 0.09 10x3/uL (0.0-0.7); #Monocytes 0.52 10x3/uL (0.11-0.59); #Neutrophils 3.51 10x3/uL (1.40-6.50); %Basophils 1.0 % (0.0-1.0); %Eosinophils 1.7 % (0.0-10.0); %Lymphocytes 19.3 % (21.0-51.0); %Monocytes 10.0 % (0.0-10.0); %Neutrophils 67.6 % (42.0-75.0); Hematocrit 20.0 % (36.0-47.0); Hemoglobin 6.6 g/dL (12.0-16.0); Mean Corpuscular Hemoglobin 32.4 pg (27.0-31.0); Mean Corpuscular Volume 98.0 fL (78.0-98.0); Platelet Count 253 10x3/uL (130-400); Red Blood Cell (RBC) Count 2.04 mill/uL (4.20-5.40); White Blood Cell (WBC) Count 5.19 10x3/uL (4.8-10.8)
== END 2025-05-26 17:32 | disposition home or self-care (01) ==
LOC: ERS 11:35
DX: D64.9 Anemia, unspecified (principal); I50.9 Heart failure, unspecified; Z79.82 Long term (current) use of aspirin
CPT/HCPCS: 36430; 85025; 86850; 86900; 86901; 86920; 99284; P9016

== ENCOUNTER 2025-06-01 09:12 | Day surgery (SDC) | payer MEDICARE ==
[2025-06-01 10:19] LABS: #Basophils 0.04 10x3/uL (0.0-0.2); #Eosinophils 0.09 10x3/uL (0.0-0.7); #Monocytes 0.55 10x3/uL (0.11-0.59); #Neutrophils 4.93 10x3/uL (1.40-6.50); %Basophils 0.6 % (0.0-1.0); %Eosinophils 1.4 % (0.0-10.0); %Lymphocytes 14.6 % (21.0-51.0); %Monocytes 8.3 % (0.0-10.0); %Neutrophils 74.8 % (42.0-75.0); Hematocrit 23.5 % (36.0-47.0); Hemoglobin 7.5 g/dL (12.0-16.0); Mean Corpuscular Hemoglobin 31.8 pg (27.0-31.0); Mean Corpuscular Volume 99.6 fL (78.0-98.0); Platelet Count 208 10x3/uL (130-400); Red Blood Cell (RBC) Count 2.36 mill/uL (4.20-5.40); White Blood Cell (WBC) Count 6.59 10x3/uL (4.8-10.8)
[2025-06-01 10:36] LABS: Iron 44.0 ug/dL (50-170); Iron Binding Capacity, Total 196.0 mcg/dL (265-497); Uric Acid 7.4 mg/dL (2.5-6.2)
[2025-06-01 10:37] LABS: ALT (SGPT) 11 U/L (Less than 34); AST (SGOT) 22 U/L (11-34); Albumin 3.9 g/dL (3.1-4.5); Alkaline Phosphatase 117 U/L (40-110); Anion Gap 11 mmol/L (10-20); BUN (Urea Nitrogen) 21 mg/dL (9.8-20.1); Bilirubin, Total 1.8 mg/dL (0.3-1.2); Calc. Creatinine Clearance 0 mL/min (70-130); Calcium 9.7 mg/dL (7.8-10.44); Carbon Dioxide 28 mmol/L (23-31); Chloride 103 mmol/L (98-107); Globulin 2.2 g/dL (2.4-3.5); Glucose 122 mg/dL (83-110); Potassium 4.4 mmol/L (3.5-5.1); Sodium 138 mmol/L (136-145)
[2025-06-01] MEDS ORDERED: Acetaminophen 500 MG TAB ONE (10:47)
[2025-06-01] MEDS: Acetaminophen 500 MG TAB PO SCH (10:48)
[2025-06-01] MEDS: diphenhydrAMINE 25 MG CAP PO SCH (10:48)
[2025-06-01] MEDS ORDERED: diphenhydrAMINE 25 MG CAP ONE (10:48)
[2025-06-01 11:04] LABS: Vitamin B12 920.0 pg/mL (211-911)
[2025-06-01 14:02] VITALS: BP 136/64; TEMP 98.4
== END 2025-06-01 14:18 | disposition home or self-care (01) ==
LOC: ONC/OP 09:12
PROVIDERS: ATTEND Internal Medicine
DX: D50.8 Other iron deficiency anemias (principal); D69.59 Other secondary thrombocytopenia; D46.Z Other myelodysplastic syndromes; Z79.899 Other long term (current) drug therapy
CPT/HCPCS: 36430; 80053; 82607; 82728; 83010; 83540; 83550; 83615; 84550; 85025; 85046; 86850; 86900; 86901; 86920; P9016